=== PATIENT | male | born 1990 | race African-American/Black ===

== ENCOUNTER 2024-05-27 13:27 | Emergency (ER) | payer OTHER, SELFPAY ==
[2024-05-27 13:34] VITALS: BP 125/88; PULSE 71; RESP 16; TEMP 37.1; O2SAT 99; BMI 29.9
--- NOTE | 2024-05-27 13:43 | ED_ITS ---
HPI - Back Pain/Injury <Ana Ding PA-C - Last Filed: 05/27/24 14:45> General Chief Complaint: Back Pain/Injury Stated Complaint: back pain Time Seen by Provider: 05/27/24 13:43 Source: patient History of Present Illness HPI Narrative: Mr. Lucia is a pleasant 34-year-old male with a past medical history of seizure disorder on Lamictal and Briviact who presents to the emergency department for low back pain x2 weeks. Patient reports he developed low back pain while sitting work. Denies any trauma to the back. States that sitting and bending forward exacerbated the pain in the low back. Sitting up straight and lying relieve the pain. He denies fevers, chills, diabetes, cancer, dysuria, bowel or bladder incontinence, numbness or tingling of the lower extremity, weakness. Denies history of IV drug use. He has not tried anything to relieve the pain. Related Data Previous Rx's Medication Instructions Recorded lidocaine 5 % topical patch 1 patch topical DAILY #15 ea 05/27/24 (Lidoderm) methocarbamol 500 mg tablet 500 mg PO BEDTIME PRN muscle spasm 05/27/24 #10 tabs methylprednisolone 4 mg tablets in See Rx Instructions PO .COMPLEX 05/27/24 a dose pack (Medrol (Donny)) #21 ea Review of Systems <Ana Ding PA-C - Last Filed: 05/27/24 14:45> Review of Systems ROS Unobtainable: All systems reviewed & are unremarkable except as noted in HPI and below Patient History <Ana Ding PA-C - Last Filed: 05/27/24 14:45> Social History Smoking Status: Never smoker Smoking Status: Never smoker Substance Use Type: does not use Exam <Ana Ding PA-C - Last Filed: 05/27/24 14:45> Narrative Exam Narrative: GENERAL: 34 year old patient appears stated age. Well-developed patient, in no acute distress. HEAD: Atraumatic. Normocephalic. EYES: Extraocular motions intact. No scleral icterus. No injection or drainage. ENT: Nose without bleeding, purulent drainage. NECK: Trachea midline. Cervical ROM intact. CARDIOVASCULAR: Regular rate and rhythm. RESPIRATORY: ?Nonlabored respirations. ?Speaking in clear, full sentences. ?Clear to auscultation. Breath sounds equal bilaterally. No wheezes, rales, or rhonchi. ? GASTROINTESTINAL: Abdomen soft, non-tender, nondistended. EXTREMITIES: No edema or joint tenderness. +2 BL PT pulses. BACK: + left SLR. Nontender without deformity or crepitance. No flank tenderness. NEURO: AOx3. ?Clear speech. ?Moves all 4 extremities appropriately. Sensation intact to light touch throughout bilateral lower extremities. 5/5 strength BL hip flex, knee flex, plantar & dorsiflexion of feet SKIN: No rash or erythema of visible areas Initial Vital Signs Initial Vital Signs: Vital Signs Temperature 98.8 F 05/27/24 13:34 Pulse Rate 71 05/27/24 13:34 Respiratory Rate 16 05/27/24 13:34 Blood Pressure 125/88 05/27/24 13:34 Pulse Oximetry 99 05/27/24 13:34 Oxygen Delivery Method Room Air 05/27/24 13:34 <Angelito Kaur MD - Last Filed: 06/01/24 15:26> Initial Vital Signs Initial Vital Signs: Vital Signs Temperature 98.8 F 05/27/24 13:34 Pulse Rate 71 05/27/24 13:34 Respiratory Rate 16 05/27/24 13:34 Blood Pressure 125/88 05/27/24 13:34 Pulse Oximetry 99 05/27/24 13:34 Oxygen Delivery Method Room Air 05/27/24 13:34 Course <Ana Ding PA-C - Last Filed: 05/27/24 14:45> Orders Ordered: Discontinued Medications Acetaminophen (Acetaminophen 325 Mg Tablet) 975 mg PO NOW ONE Stop: 05/27/24 14:12 Last Admin: 05/27/24 14:26 Dose: 975 mg Documented By: THOR Ketorolac Tromethamine (Ketorolac 30 Mg/Ml Vial) 30 mg IM NOW ONE Stop: 05/27/24 14:12 Last Admin: 05/27/24 14:27 Dose: 30 mg Documented By: THOR Vital Signs Vital signs: Vital Signs - 8 hr 05/27/24 13:34 Temperature 98.8 F Pulse Rate 71 Respiratory Rate 16 Blood Pressure 125/88 Pulse Oximetry 99 Oxygen Delivery Method Room Air <Angelito Kaur MD - Last Filed: 06/01/24 15:26> Orders Ordered: Discontinued Medications Acetaminophen (Acetaminophen 325 Mg Tablet) 975 mg PO NOW ONE Stop: 05/27/24 14:12 Last Admin: 05/27/24 14:26 Dose: 975 mg Documented By: THOR Ketorolac Tromethamine (Ketorolac 30 Mg/Ml Vial) 30 mg IM NOW ONE Stop: 05/27/24 14:12 Last Admin: 05/27/24 14:27 Dose: 30 mg Documented By: THOR Vital Signs Vital signs: Vital Signs - 8 hr 05/27/24 13:34 Temperature 98.8 F Pulse Rate 71 Respiratory Rate 16 Blood Pressure 125/88 Pulse Oximetry 99 Oxygen Delivery Method Room Air MDM - Back Pain/Injury <Ana Ding PA-C - Last Filed: 05/27/24 14:45> Lab Data Labs: Lab Results 05/27/24 Range/Units 13:40 Urine RBC None seen (0-5/HPF) Urine WBC None seen (0-5/HPF) Ur Squamous Epith Cells None seen (0-5/HPF) Urine Bacteria None seen (None) Ur Culture Indicated? Cult not indicated Vol Urine Centrifuged 10ml (spun) Urine Dip Bedside Urine Glucose Negative Bedside Urine Bilirubin - Negative Bedside Urine Ketone - Negative Urine Specific [place] 1.015 Bedside Urine Occult Blood - Negative Bedside Urine pH 6.0 Bedside Urine Protein +/- 15 Bedside Urine Urobilinogen - Negative Bedside Urine Nitrite - Negative Bedside Urine Leukocytes - Negative Esterase MDM Narrative Medical decision making narrative: 34-year-old male presents to the emergency department for low back pain x2 weeks. Differential diagnosis includes but is not limited to lumbar strain, spinal stenosis, radiculopathy, cystitis, etc. On exam patient is in no acute distress, nontoxic appearing. He is ambulatory. No focal neurologic deficits, equal bilateral lower extremity strength and sensation and good pulses. Does have a positive left straight leg raise. No red flags including history of cancer, diabetes, IV drug use, fevers, chills, trauma. We will check POC UA and treat symptoms with Tylenol and Toradol. POC UA negative for infection. Advised patient rest, gentle exercise, low does Tylenol and ibuprofen alternating for pain (given steroids + category C interaction between Lamictal and Tylenol at doses of 2.7-4 g daily) and Medrol Dosepak for left leg radiculopathy. He was prescribed muscle relaxer and lidoderm if needed, discussed risks of muscle relaxers. Advised patient follow up with his primary care doctor within 1 week for re-evaluation. Discussed strict ER return precautions. Patient is agreeable to plan, ambulatory, stable for discharge. <Angelito Kaur MD - Last Filed: 06/01/24 15:26> Lab Data Labs: Lab Results 05/27/24 Range/Units 13:40 Urine RBC None seen (0-5/HPF) Urine WBC None seen (0-5/HPF) Ur Squamous Epith Cells None seen (0-5/HPF) Urine Bacteria None seen (None) Ur Culture Indicated? Cult not indicated Vol Urine Centrifuged 10ml (spun) Urine Dip Bedside Urine Glucose Negative Bedside Urine Bilirubin - Negative Bedside Urine Ketone - Negative Urine Specific [place] 1.015 Bedside Urine Occult Blood - Negative Bedside Urine pH 6.0 Bedside Urine Protein +/- 15 Bedside Urine Urobilinogen - Negative Bedside Urine Nitrite - Negative Bedside Urine Leukocytes - Negative Esterase Discharge Plan Departure Patient Disposition: Home Clinical Impression: Acute back pain with radiculopathy, Lumbar back pain Instructions: DI for Low Back Pain Activity Restrictions/Additional Instructions: Please rest, stretch, use 650 mg of Tylenol every 8 hours and/or ibuprofen 400mg every 6 hours for pain. Complete the full course of steroids and use muscle relaxer and lidocaine patches if needed. Do not drink alcohol or drive a car while taking muscle relaxers as they can make you drowsy. Please follow up with the primary care doctor within the next week for re- evaluation. Return to the emergency department if you develop any issues with your bowels bladder, weakness in the legs, or any other concerns. Return to the emergency department for any new or worsening symptoms, or any other concerns. Thank you for letting me participate in your care, Ana Ding PA-C Prescriptions: New lidocaine [Lidoderm] 5 % adhesive patch,medicated 1 patch topical DAILY Qty: 15 0RF Rx Instructions: leave on most painful area for up to 12 hrs methylprednisolone [Medrol (Donny)] 4 mg tablets,dose pack See Rx Instructions .ROUTE .COMPLEX Qty: 21 0RF Rx Instructions: orally per package directions methocarbamol 500 mg tablet 500 mg PO BEDTIME PRN (Reason: muscle spasm) Qty: 10 0RF Stand Alone Forms: Patient Portal/API/Survey ED Sign-out <Angelito Kaur MD - Last Filed: 06/01/24 15:26> Cosign ED Attending Cosignature Attestation: I was immediately available in the department for consultation. ?This documentation has been reviewed and I agree with assessment and plan. Supervised by Angelito Kaur MD
[2024-05-27 14:23] LABS: Urine Volume 10mL (spun)
[2024-05-27 14:26] LABS: Bacteria Urine None Seen; Culture Indicated Urine Cult Not Indicated; RBC Urine None Seen (0-5/HPF); Squamous Epithelial Cell Urine None Seen (0-5/HPF); WBC Urine None Seen (0-5/HPF)
[2024-05-27] MEDS: ACETAMINOPHEN 325 MG TABLET 975 MG PO (14:26)
[2024-05-27] MEDS: KETOROLAC 30 MG/ML VIAL IM (14:27)
[2024-05-27 14:48] VITALS: BP 119/82; PULSE 73; RESP 16; O2SAT 99
== END 2024-05-27 14:50 | disposition home or self-care (01) ==
PROVIDERS: Emergency Provider Physician Assistant
DX: M54.16 Radiculopathy, lumbar region (principal); M54.50 Low back pain, unspecified
CPT/HCPCS: 81003; 81015; 96372; 99283; J1885

== ENCOUNTER 2024-09-03 08:10 | Emergency (ER) | payer OTHER, SELFPAY ==
[2024-09-03 08:25] VITALS: BP 134/92; PULSE 82; RESP 18; TEMP 36.4; O2SAT 97; BMI 29.2
--- NOTE | 2024-09-03 09:04 | ED_ITS ---
HPI - Back Pain/Injury General Chief Complaint: Back Pain/Injury Stated Complaint: Lower back pain Time Seen by Provider: 09/03/24 09:04 Source: patient History of Present Illness HPI Narrative: 34-year-old male with a past medical history of seizure disorder on Lamictal and Briviact presents for low back pain, states has a history of this states that he had an exacerbation of this yesterday when he was changing a tire last night. He denies any bowel or urinary incontinence or retention denies any saddle paresthesias is able to stand bear weight ambulate unassisted here in the emergency department. Denies any other symptoms at this time. Related Data Previous Rx's Medication Instructions Recorded lidocaine 5 % topical patch 1 patch topical DAILY #15 ea 05/27/24 (Lidoderm) methocarbamol 500 mg tablet 500 mg PO BEDTIME PRN muscle spasm 05/27/24 #10 tabs methylprednisolone 4 mg tablets in See Rx Instructions PO .COMPLEX 05/27/24 a dose pack (Medrol (Donny)) #21 ea diazepam 5 mg tablet (Valium) 5 mg PO BEDTIME PRN muscle spasm 5 09/03/24 days #5 tabs oxycodone-acetaminophen 5 mg-325 1 tab PO Q8H PRN pain 3 days #9 09/03/24 mg tablet (Percocet) tabs prednisone 20 mg tablet 20 mg PO DAILY 5 days #5 tabs 09/03/24 Allergies Allergy/AdvReac Type Severity Reaction Status Date / Time No Known Drug Allergies Allergy Verified 09/03/24 08:35 Review of Systems Review of Systems Narrative: General: Denies fever, chills, weight loss HEENT: Denies headache, eye drainage, eye irritation, head trauma, sore throat, voice change Cardiovascular: Denies any chest pain, palpitations, shortness of breath, tachycardia Respiratory: Denies any shortness of breath, cough, wheeze, stridor GI/: Denies any abdominal pain, nausea, vomiting, diarrhea, bright red blood per rectum, melanotic stools, urinary frequency, urinary retention, dysuria, hematuria MSK: Positive low back pain Skin: Denies any rashes, lesions, discoloration Neuro: Denies any headache, lightheadedness, dizziness, fainting, weakness Psych: Denies SI/HI Patient History Social History Smoking Status: Never smoker Smoking Status: Never smoker Exam Narrative Exam Narrative: General: Cooperative, comfortable, well-developed, not in acute distress HEENT: Normocephalic, atraumatic, PERRLA, normal sclera, eyelids normal, Neck: Active full range of motion, atraumatic Chest: Normal to inspection, negative crepitus, no overlying erythema ecchymosis Respiratory: Normal respiratory effort, not in acute respiratory distress, clear to auscultation bilaterally negative cough, wheeze, tachypnea, rhonchi, rales Cardiology: Regular rate rhythm negative gallop, murmur, rubs GI/: Normal to inspection, soft, nonrigid, no tenderness to palpation, exam deferred MSK: Full range of active range of motion of all 4 extremities, atraumatic, no tenderness to palpation of the thoracic lumbar spine tenderness to palpation of bilateral paraspinal muscles positive straight leg test, patient able to stand bear weight ambulate unassisted here in the emergency department. Skin: No rashes lesions noted Neuro: Alert awake oriented x3, moves all 4 extremities spontaneously, cranial nerves intact, able to answer all questions appropriately follows commands appropriately Psych: Cooperative, negative suicidal or homicidal ideations Initial Vital Signs Initial Vital Signs: Vital Signs Temperature 97.6 F 09/03/24 08:25 Pulse Rate 82 09/03/24 08:25 Respiratory Rate 18 09/03/24 08:25 Blood Pressure 134/92 H 09/03/24 08:25 Pulse Oximetry 97 09/03/24 08:25 Oxygen Delivery Method Room Air 09/03/24 08:25 Course Orders Ordered: ED Orders 09/03/24 09:11 CT lumbar spine wo con Stat Discontinued Medications Diazepam (Diazepam 5 Mg Tablet) 5 mg PO NOW ONE Stop: 09/03/24 09:12 Last Admin: 09/03/24 09:26 Dose: 5 mg Documented By: DESTINY Lidocaine (Lidocaine 5% Patch) 1 each TOP NOW ONE Stop: 09/03/24 09:12 Last Admin: 09/03/24 09:26 Dose: 1 each Documented By: DESTINY Oxycodone/Acetaminophen (Oxycodone/Acetaminophen 5/325 Tablet) 1 tab PO NOW ONE Stop: 09/03/24 09:12 Last Admin: 09/03/24 09:26 Dose: 1 tab Documented By: DESTINY Prednisone (Prednisone 20 Mg Tablet) 40 mg PO NOW ONE Stop: 09/03/24 09:12 Last Admin: 09/03/24 09:26 Dose: 40 mg Documented By: DESTINY Vital Signs Vital signs: Vital Signs - 8 hr 09/03/24 08:25 Temperature 97.6 F Pulse Rate 82 Respiratory Rate 18 Blood Pressure 134/92 H Pulse Oximetry 97 Oxygen Delivery Method Room Air MDM - Back Pain/Injury Differential Diagnosis Differential diagnosis: Likely lumbar radiculopathy and strain of lumbar region Imaging Data CT lumbar: Radiologist's Impression: [address] [address] [address] Scan Report Signed Patient: Lewis Lucia MR#: [id number] : 1990 Acct:[id number] Age/Sex: 34 / M Date of Service: 09/03/24 Loc: ED Accession Number: [id number] Procedure: CT lumbar spine wo con Ordering Provider: Amilcar Jackson D.O. PROCEDURE: CT LUMBAR SPINE WO CON INDICATIONS: low back pain TECHNIQUE: Noncontrast 3 mm thick sections acquired from the T12 level to the sacrum. Sagittal and coronal reformats were constructed. For radiation dose reduction, the following was used: automated exposure control. COMPARISON: None. FINDINGS: Image quality: Excellent. Bones: There is normal bony alignment. No acute vertebral body compression fractures. No suspicious lytic or blastic bony lesions. No pars defects. T12-L1: No canal stenosis or foraminal stenosis. L1-L2: No canal stenosis or foraminal stenosis. L2-L3: No canal stenosis or foraminal stenosis. L3-L4: No canal stenosis or foraminal stenosis. L4-L5: Mild disc bulge. Short pedicles. Borderline canal stenosis. No foraminal stenosis. L5-S1: Short pedicles. Mild broad-based disc protrusion, slightly eccentric to the left with subtle impingement on the left S1 nerve root. No significant central canal stenosis. Soft tissues: No retroperitoneal masses or hematomas. Visualized aorta is normal in caliber. IMPRESSION: 1. 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 2. Disc bulge with borderline canal stenosis at L4-L5. 3. Mild broad-based disc protrusion at L5-S1 with slight impingement on the left S1 nerve root. Recommend correlation for presence or absence of left sciatica symptoms. MDM Narrative Medical decision making narrative: 34-year-old male with a history of low back pain presents for exacerbation of this after changing his tire yesterday. Denies any saddle paresthesias or other red flag signs for cauda equina is able to stand bear weight ambulate here in the emergency department unassisted. Patient did have CT scan of his lumbar spine performed which did show mild lumbar radiculopathy but no severe canal stenosis. Patient's symptoms relieved after administration of Percocet Valium lidocaine patch and prednisone he will be sent home with symptomatic relief and instructed to follow up with primary care and orthopedic surgery in outpatient setting strict return precautions were given he understands and agrees with this plan patient agrees to being discharged home with outpatient follow up. Discharge Plan Departure Patient Disposition: Home Clinical Impression: Acute lumbar radiculopathy Instructions: DI for Back Pain With Sciatica Activity Restrictions/Additional Instructions: Please follow up with primary care and orthopedic surgery Please read the discharge instructions sheet carefully and bring all papers to all doctor follow-up visits, as it may contain information that your doctor may want to see. Disease processes change and evolve, if your symptoms worsen or if you develop any new symptoms that are concerning to you please return for evaluation. Your evaluation today does not show any evidence of any life- threatening/serious illnesses requiring admission to the hospital or surgery. Please follow-up with your doctor for re-evaluation in approximately 1 day. Seek immediate medical attention for any worrisome symptoms. *If you do not have a primary care provider please contact the [facility] Resource line at [phone]. They will ask some questions about your medical history and help get you set up with a doctor in the community. Prescriptions: New prednisone 20 mg tablet 20 mg PO DAILY 5 Days Qty: 5 0RF diazepam [Valium] 5 mg tablet 5 mg PO BEDTIME PRN (Reason: muscle spasm) 5 Days Qty: 5 0RF oxycodone-acetaminophen [Percocet] 5-325 mg tablet 1 tab PO Q8H PRN (Reason: pain) 3 Days Qty: 9 0RF No Action lidocaine [Lidoderm] 5 % adhesive patch,medicated 1 patch topical DAILY Qty: 15 0RF Rx Instructions: leave on most painful area for up to 12 hrs methylprednisolone [Medrol (Donny)] 4 mg tablets,dose pack See Rx Instructions .ROUTE .COMPLEX Qty: 21 0RF Rx Instructions: orally per package directions methocarbamol 500 mg tablet 500 mg PO BEDTIME PRN (Reason: muscle spasm) Qty: 10 0RF Referrals: Ralph Salazar MD [Physician] - Stand Alone Forms: Patient Portal/API/Survey
--- NOTE | 2024-09-03 09:11 | DI.CT.S_ITS ---
PROCEDURE: CT LUMBAR SPINE WO CON INDICATIONS: low back pain TECHNIQUE: Noncontrast 3 mm thick sections acquired from the T12 level to the sacrum. Sagittal and coronal reformats were constructed. For radiation dose reduction, the following was used: automated exposure control. COMPARISON: None. FINDINGS: Image quality: Excellent. Bones: There is normal bony alignment. No acute vertebral body compression fractures. No suspicious lytic or blastic bony lesions. No pars defects. T12-L1: No canal stenosis or foraminal stenosis. L1-L2: No canal stenosis or foraminal stenosis. L2-L3: No canal stenosis or foraminal stenosis. L3-L4: No canal stenosis or foraminal stenosis. L4-L5: Mild disc bulge. Short pedicles. Borderline canal stenosis. No foraminal stenosis. L5-S1: Short pedicles. Mild broad-based disc protrusion, slightly eccentric to the left with subtle impingement on the left S1 nerve root. No significant central canal stenosis. Soft tissues: No retroperitoneal masses or hematomas. Visualized aorta is normal in caliber. IMPRESSION: 1. 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 2. Disc bulge with borderline canal stenosis at L4-L5. 3. Mild broad-based disc protrusion at L5-S1 with slight impingement on the left S1 nerve root. Recommend correlation for presence or absence of left sciatica symptoms. Dictated by: Jens Nevarez M.D. on 09/03/2024 at 10:38 Approved by: Jens Nevarez M.D. on 09/03/2024 at 10:43
[2024-09-03] MEDS: LIDOCAINE 5% PATCH 1 EACH TOP (09:26)
[2024-09-03] MEDS: predniSONE 20 MG TABLET 40 MG PO (09:26)
[2024-09-03] MEDS: diazePAM 5 MG TABLET PO (09:26)
[2024-09-03] MEDS: OXYCODONE/ACETAMINOPHEN 5/325 TABLET 1 TAB PO (09:26)
[2024-09-03 11:18] VITALS: BP 128/77; PULSE 80; RESP 18; TEMP 36.7; O2SAT 99
== END 2024-09-03 11:19 | disposition home or self-care (01) ==
PROVIDERS: Emergency Provider Student in an Organized Health Care Education/Training Program
DX: M54.16 Radiculopathy, lumbar region (principal)
CPT/HCPCS: 72131; 99283; 99284

== ENCOUNTER 2024-09-22 21:42 | Emergency (ER) | payer OTHER, SELFPAY ==
[2024-09-22] VITALS (7 sets, daily range): BP systolic 129–151; BP diastolic 84–97; PULSE 83–93; RESP 17–22; TEMP 36.7; O2SAT 95–97; BMI 28.4
--- NOTE | 2024-09-22 21:51 | EKG_ITS ---
[address] [address] Test Date: 2024-09-22 Pat Name: Lewis Lucia Department: 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
--- NOTE | 2024-09-22 22:01 | DI.RAD.S_ITS ---
PROCEDURE: XR CHEST 1V INDICATIONS: chest pain TECHNIQUE: One view of the chest was acquired. COMPARISON: None. FINDINGS AND IMPRESSION: Low lung volumes. On this single view study, no airspace consolidation or pleural effusion. Normal heart size. Unremarkable osseous structures. Dictated by: Clement Thacker M.D. on 09/22/2024 at 22:14 Approved by: Clement Thacker M.D. on 09/22/2024 at 22:15
--- NOTE | 2024-09-22 22:09 | PC.NURSE ---
Pt states that he has epilepsy, but no cardiac history.
[2024-09-22 22:10] LABS: Add Manual Diff / Slide Review NO; Basophils Absolute Auto 100 /uL (0-100); Eosinophils Absolute Auto 300 /uL (0-450); Eosinophils Percent Auto 3.1 % (2-4); Hematocrit 48.5 % (41-53); Hemoglobin 16.8 g/dL (13.5-17.5); Lymphocytes Absolute Auto 3600 /uL (1100-4500); Lymphocytes Percent Auto 38.9 % (25-40); Mean Corpuscular HGB Conc 34.8 % (30-36); Mean Corpuscular Hemoglobin 27.1 PG (26-34); Monocytes Absolute Auto 700 /uL (0-900); Monocytes Percent Auto 8.1 % (3-14); Neutrophils Absolute Auto 4500 /uL (1500-7000); Neutrophils Percent Auto 48.9 % (50-75); Platelet Count 195 X10^3/uL (150-400); Red Blood Cell Count 6.21 X10^6/uL (4.5-5.9); Red Cell Distribution Width 14.9 % (11.6-14.8); White Blood Cell Count 9.2 X10^3/uL (4.5-11.0)
[2024-09-22 22:14] LABS: INR 1.1 (0.9-1.3); Prothrombin Time 12.4 SECONDS (9.4-12.5)
[2024-09-22 22:16] LABS: PTT Partial Thromboplastin Tim 32 SECONDS (25.1-36.5)
[2024-09-22 22:18] LABS: Alanine Aminotransferase 115 IU/L (<50); Albumin 4.8 g/dL (3.5-5.0); Albumin Globulin Ratio 1.4 (1.0-2.8); Alkaline Phosphatase 83 U/L (38-126); Aspartate Aminotransferase 67 IU/L (17-59); BUN Creatinine Ratio 9.4 (6-22); Blood Urea Nitrogen 9 mg/dL (9-20); Calcium 9.4 mg/dL (8.4-10.2); Carbon Dioxide 25 mmol/L (22-32); Chloride 101 mmol/L (98-107); Creatine Kinase 400 U/L (55-170); Estimated Glomerular Filt Rate > 60 mL/min (>60); Globulin 3.4 g/dL (1.7-4.1); Glucose 128 mg/dL (70-100); HEMOLYSIS 27 (0-50); Lipase 70 U/L (23-300); Magnesium 1.7 mg/dL (1.6-2.3); Potassium 3.5 mmol/L (3.4-5.1); Sodium 138 mmol/L (137-145); Total Protein 8.2 g/dL (6.3-8.2)
[2024-09-22] MEDS: ASPIRIN 81 MG CHEW TAB 324 MG PO (22:21)
[2024-09-22 22:30] LABS: NT-proBNP (BNP-Adult 18+) < 20 pg/mL (<125); Troponin I 0.089 ng/mL (0.01-0.034)
[2024-09-23] VITALS (24 sets, daily range): BP systolic 92–158; BP diastolic 60–93; PULSE 60–87; RESP 12–27; O2SAT 95–100
--- NOTE | 2024-09-23 00:21 | ED.CHESTPAIN ---
HPI - Chest Pain General Chief Complaint: Chest Pain Stated Complaint: chest pain radiating to back Time Seen by Provider: 09/23/24 00:17 Source: patient, RN notes reviewed and old records reviewed Mode of arrival: Ambulatory Limitations: no limitations Limitations: no limitations History of Present Illness HPI narrative: 34-year-old male with history of seizure disorder on Keppra and Brivaracetam complaint of left chest pain radiating to his back came on suddenly this morning while getting out of the car worse with movement and breathing no tenderness when he pushes but does hurt with movement. Also has complaints of chronic pain in the left lower back and leg as well as left eye pain. Patient states started having left-sided chest pain radiates towards his back. Started about 10:00 a.m. this morning he was getting in or out of the car. He states it was little bit worse if he reaches forward but also pleuritic in nature. He states he does not really feel short of breath. Denies any nausea or vomiting. No syncope. No fevers or chills. No cold cough or congestion symptoms. No issues with bowel movements or urination. Denies any swelling extremities. States he is on brief and Keppra states he was diagnosed with seizures in May 2021 unclear why. Does supposed to follow with neurology [facility]. no known drug allergies, no tobacco, alcohol or recreational drugs. He denies any embolic, cardiac or vascular family history. He notes he had what sounds like a heart catheterization after a flight to [place] from [facility] he was told he had a clot and was on thinners for 2 weeks but they were not continued. This was a couple years ago. Related Data Previous Rx's Medication Instructions Recorded lidocaine 5 % topical patch 1 patch topical DAILY #15 ea 05/27/24 (Lidoderm) methocarbamol 500 mg tablet 500 mg PO BEDTIME PRN muscle spasm 05/27/24 #10 tabs methylprednisolone 4 mg tablets in See Rx Instructions PO .COMPLEX 05/27/24 a dose pack (Medrol (Donny)) #21 ea Allergies Allergy/AdvReac Type Severity Reaction Status Date / Time No Known Drug Allergies Allergy Verified 09/03/24 08:35 Review of Systems Review of Systems ROS Unobtainable: All systems reviewed & are unremarkable except as noted in HPI and below Patient History Social History Smoking Status: Never smoker Smoking Status: Never smoker Exam Narrative Exam Narrative: GENERAL: Alert and oriented x three, male in mild distress HEENT: Head normocephalic, atraumatic, EOMI, pupils reactive, face symmetric, moist mucous membranes NECK: Supple, full range of motion CARDIOVASCULAR: Regular rate and rhythm without murmurs, rubs or gallops. No JVD. No edema bilateral lower extremities. RESPIRATORY: Breath sounds equal bilaterally, no wheezes rales or rhonchi. ABDOMEN: Soft, nontender. Normoactive bowel sounds all 4 quadrants. No guarding or rebound, rigidity, no mass : No CVA tenderness EXTREMITIES: Normal range of motion, no clubbing or edema. Neurovascularly intact NEUROLOGICAL: Cranial nerves II through XII grossly intact. Moving all extremities SKIN: Warm, dry, no petechiae, no rashes or lesions. Initial Vital Signs Initial Vital Signs: Vital Signs Temperature 98.0 F 09/22/24 21:50 Pulse Rate 93 H 09/22/24 21:50 Respiratory Rate 17 09/22/24 21:50 Blood Pressure 136/97 H 09/22/24 21:50 Pulse Oximetry 97 09/22/24 21:50 Oxygen Delivery Method Room Air 09/22/24 21:50 Course Orders Ordered: Discontinued Medications Aspirin (Aspirin 81 Mg Chew Tab) 324 mg PO NOW ONE Stop: 09/22/24 22:02 Last Admin: 09/22/24 22:21 Dose: 324 mg Documented By: AB Heparin Sodium (Porcine) (Heparin 5,000 Unit/Ml Vial) 5,000 unit IV NOW ONE Stop: 09/23/24 02:44 Last Admin: 09/23/24 03:10 Dose: 5,000 unit Documented By: AB Heparin Sodium/Dextrose (Heparin Drip) 25,000 unit in 500 mls @ 22.208 mls/hr IV CONT JULITO; Protocol Last Admin: 09/23/24 03:21 Dose: Not Given Documented By: AB Heparin Sodium/Dextrose (Heparin Drip) 25,000 unit in 500 mls @ 20 mls/hr IV CONT JULITO; Protocol Last Titration: 09/23/24 09:33 Dose: 1,000 unit/hr, 20 mls/hr Documented By: SHIRA Co-signed By: Admin: 09/23/24 03:11 Dose: 1,000 unit/hr, 20 mls/hr Documented By: Co-signed By: BETY Morphine Sulfate (Morphine 4 Mg/Ml Inj) 4 mg IV NOW ONE Stop: 09/23/24 01:38 Last Admin: 09/23/24 01:41 Dose: 4 mg Documented By: Nitroglycerin (Nitroglycerin 0.4 Mg Sl Tab) 0.4 mg SL [id number] PRN PRN Reason: Chest Pain Last Admin: 09/23/24 01:28 Dose: 0.4 mg Documented By: Vital Signs Vital signs: Vital Signs - 8 hr 09/22/24 23:00 09/22/24 23:00 09/22/24 23:30 Pulse Rate 87 86 Respiratory Rate 20 22 Blood Pressure 129/90 Pulse Oximetry 95 97 Oxygen Delivery Method Room Air 09/22/24 23:30 09/23/24 00:00 09/23/24 00:00 Pulse Rate 87 Respiratory Rate 22 Blood Pressure 151/84 H 158/93 H Pulse Oximetry 98 Oxygen Delivery Method 09/23/24 00:30 09/23/24 00:31 09/23/24 00:31 Pulse Rate 82 83 Respiratory Rate 17 18 Blood Pressure 131/82 Pulse Oximetry 98 98 Oxygen Delivery Method 09/23/24 01:11 09/23/24 01:12 09/23/24 01:12 Pulse Rate 77 80 Respiratory Rate 15 21 Blood Pressure 125/83 Pulse Oximetry 97 97 Oxygen Delivery Method 09/23/24 01:28 09/23/24 01:30 09/23/24 02:00 Pulse Rate 82 83 79 Respiratory Rate 17 16 Blood Pressure 125/83 Pulse Oximetry 97 97 Oxygen Delivery Method Room Air 09/23/24 02:30 09/23/24 03:00 09/23/24 03:20 Pulse Rate 70 71 Respiratory Rate 27 H 23 Blood Pressure 107/67 Pulse Oximetry 95 96 Oxygen Delivery Method Room Air 09/23/24 03:20 09/23/24 03:30 09/23/24 03:30 Pulse Rate 72 63 Respiratory Rate 16 14 Blood Pressure 108/64 Pulse Oximetry 97 95 Oxygen Delivery Method 09/23/24 04:00 09/23/24 04:00 09/23/24 04:30 Pulse Rate 60 Respiratory Rate 18 Blood Pressure 114/78 119/78 Pulse Oximetry 95 Oxygen Delivery Method 09/23/24 04:30 09/23/24 05:00 09/23/24 05:00 Pulse Rate 68 65 Respiratory Rate 14 12 Blood Pressure 103/71 Pulse Oximetry 96 96 Oxygen Delivery Method Room Air 09/23/24 05:30 09/23/24 05:30 09/23/24 06:00 Pulse Rate 62 64 Respiratory Rate 14 14 Blood Pressure 103/68 Pulse Oximetry 96 100 Oxygen Delivery Method 09/23/24 06:00 09/23/24 06:30 09/23/24 06:30 Pulse Rate 71 Respiratory Rate 12 Blood Pressure 101/67 109/76 Pulse Oximetry 98 Oxygen Delivery Method MDM - Chest Pain Lab Data 09/22/24 21:55 09/22/24 21:55 Labs: Lab Results 09/22/24 09/22/24 09/23/24 Range/Units 21:55 23:55 02:05 WBC 9.2 (4.5-11.0) X10^3/uL RBC 6.21 H (4.5-5.9) X10^6/uL Hgb 16.8 (13.5-17.5) g/dL Hct 48.5 (41-53) % MCV 78.0 L (80-100) fL MCH 27.1 (26-34) PG MCHC 34.8 (30-36) % RDW 14.9 H (11.6-14.8) % Plt Count 195 (150-400) X10^3/uL Neut % (Auto) 48.9 L (50-75) % Lymph % (Auto) 38.9 (25-40) % [place] % (Auto) 8.1 (3-14) % Eos % (Auto) 3.1 (2-4) % Baso % (Auto) 1.0 (0-2) % Neut # (Auto) 4500 (4275-6046) /uL Lymph # (Auto) 3600 (4140-9665) /uL [place] # (Auto) 700 (0-900) /uL Eos # (Auto) 300 (0-450) /uL Baso # (Auto) 100 (0-100) /uL PT 12.4 (9.4-12.5) SECONDS INR 1.1 (0.9-1.3) APTT 32 (25.1-36.5) SECONDS Sodium 138 (137-145) mmol/L Potassium 3.5 (3.4-5.1) mmol/L Chloride 101 (98-107) mmol/L Carbon Dioxide 25 (22-32) mmol/L BUN 9 (9-20) mg/dL Creatinine 0.96 (0.66-1.25) mg/dL Estimated GFR > 60 (>60) mL/min BUN/Creatinine Ratio 9.4 (6-22) Glucose 128 H (70-100) mg/dL Calcium 9.4 (8.4-10.2) mg/dL Magnesium 1.7 (1.6-2.3) mg/dL Total Bilirubin 1.0 (0.2-1.3) mg/dL AST 67 H (17-59) IU/L ALT 115 H (<50) IU/L Alkaline Phosphatase 83 (38-126) U/L Total Creatine Kinase 400 H (55-170) U/L Troponin I 0.089 H 0.090 H 0.092 H (0.01-0.034) ng/mL NT-Pro-B Natriuret Pep < 20 (<125) pg/mL Total Protein 8.2 (6.3-8.2) g/dL Albumin 4.8 (3.5-5.0) g/dL Globulin 3.4 (1.7-4.1) g/dL Albumin/Globulin Ratio 1.4 (1.0-2.8) Lipase 70 (23-300) U/L ECG Data Attestation: I personally reviewed and interpreted this ECG as follows: Prior ECG tracings: not available for review Interpretation: Sinus rhythm rate 83 HI 166 QRS is 74 QTC of 401, no acute ST elevation depression noted. No priors for comparison. Repeat EKG shows sinus rhythm rate of 79 HI 172 QRS of 92 QTC of 410, little bit of J-point elevation but no clear ST elevation greater than 1mm in comparison to prior. [facility] Narrative Medical decision making narrative: 34-year-old male reported history of seizure disorder patient comes in with complaint of chest started while getting into a vehicle has been persistent does not appreciate worsening with exertion but has not resolved. Initial troponin is indeterminate but trending upwards on repeat, was repeated a 3rd time continuing to slowly trend upwards hemoglobin, electrolytes are appropriate AST ALT are both mildly elevated. Chest x-ray showed no acute change. Patient states he does fly quite a bit so CT angio was obtained which was negative for pulmonary embolism. Patient reports had what sounds like possible heart catheterization while in [place] several years ago. He has had no recent cold cough congestion symptoms or other changes recently to suspect myocarditis or pericarditis. EKG shows sinus rhythm rate 83 Labs show white count of 9.2 hemoglobin of 16.8 platelets of 195, coags are negative, electrolytes are appropriate BUN creatinine normal glucose is 128 AST ALT your elevated at 67 and 115 bilirubin is normal lipase is negative at 70, total CK is 400 troponin 0.089. Repeat troponin is 0.090 still indeterminant but trending upwards. BNP is less than 20. troponin repeated a third time continues to slowly trendwards. Chest x-ray shows no acute change CT angio for PE is negative. No dense airspace disease or pleural effusions. Partially seen suspected hepatic steatosis. Patient had aspirin 324mg. Had nitro sublingual no improvement in chest pain but now has a headache. Was given morphine 4 mg had improvement of chest discomfort after this. Patient placed on heparin gtt in the setting of chest pain with trending upwards troponins. Plan to order patient's Keppra and Brivaracetam but he is unsure of dosing, patient has had his evening dose. Consult with cardiology Dr. Green, [facility] @ [phone] discussed we will repeat a 3rd troponin his positive would require transfer if still indeterminate consider keeping here for chest Pain observation and stress testing. Updated patient he is aware and comfortable with the plan. Patient troponin continues to trend upwards. Patient chest pain improved after morphine. Plan for transfer for unstable angina. Calls out to multiple facilities Spoke with Dr. Nicole, hospitalist at [facility] @ 0400. We reviewed findings from today. He asked if we can chat with our hospitalist see if we can stress test patient 1st and if positive can transfer. If hospitalist requests transfer can call back. Spoke with Dr. Lunsford tele hospitalist at 5:15 a.m., feels patient not appropriate to keep here for stress test with rising troponin. Re-contacted [facility], spoke with Dr. [facility] cardiology [id number]. Did ask if possible to get stress test discussed I spoke with my hospitalist who felt uncomfortable with this with a rising troponins. [facility] appropriate for transfer at this time. Coordinator will re-contact the hospitalist. Call back from coordinator. Dr. Nicole accepts for transfer to [facility]. Have floor assignment but not bed assignment but okay to send. Plan for ALS with heparin gtt. Discussed with the patient he was agreeable with transfer. He was aware he may get stress testing initially and then decision would be made for cardiac catheterization. Critical Care Time Critical Care Time Critical Care Time: Yes Total Critical Care Time: 40 Attestation: The high probability of a clinically significant, sudden or life threatening deterioration of the cardiac/pulmonary system(s) required my full and direct attention, intervention and personal management. The aggregate critical care time was [--] minutes. This time is in addition to time spent performing reported procedures but includes the following: [x] Data Review and interpretation [x] Patient assessment and monitoring of vital signs [x] Documentation [x] Medication orders and management Discharge Plan Departure Patient Disposition: [facility] Clinical Impression: Unstable angina Prescriptions: No Action lidocaine [Lidoderm] 5 % adhesive patch,medicated 1 patch topical DAILY Qty: 15 0RF Rx Instructions: leave on most painful area for up to 12 hrs methylprednisolone [Medrol (Donny)] 4 mg tablets,dose pack See Rx Instructions .ROUTE .COMPLEX Qty: 21 0RF Rx Instructions: orally per package directions methocarbamol 500 mg tablet 500 mg PO BEDTIME PRN (Reason: muscle spasm) Qty: 10 0RF Referrals: Miscellaneous,DoctorMD [Primary Care Provider] -
--- NOTE | 2024-09-23 00:36 | DI.CT.S_ITS ---
ROCEDURE: CT ANGIO CHEST PE PROTOCOL INDICATIONS: chest pain on L, indeterminant trop, flies regularly, ? hxpe TECHNIQUE: After the administration of intravenous contrast, 2 mm thick sections acquired from the pulmonary apices to the posterior costophrenic angles. 3-dimensional maximum intensity projection (MIP) coronal and sagittal reformats were then acquired through the thorax. For radiation dose reduction, the following was used: automated exposure control, adjustment of mA and/or kV according to patient size. COMPARISON: [facility], CR, XR CHEST 1V, 09/22/2024, 21:59. FINDINGS: Image quality: Diagnostic Lungs and pleura: Basal atelectasis. No airspace consolidation or pleural effusion. Mediastinum, heart, and esophagus: No acute pulmonary embolism. Heart size is at the upper limit of normal. Mildly patulous distal esophagus. No pathologic lymph nodes by size criteria Chest wall and thyroid: Unremarkable Upper abdomen: Suspect hepatic steatosis partially seen. Bones: No aggressive appearing focal osseous abnormality. IMPRESSION: No acute pulmonary embolism. No dense airspace disease or pleural effusions. Partially seen suspected hepatic steatosis Dictated by: Clement Thacker M.D. on 09/23/2024 at 1:09 Approved by: Clement Thacker M.D. on 09/23/2024 at 1:12
[2024-09-23] MEDS: NITROGLYCERIN 0.4 MG SL TAB SL (01:28)
--- NOTE | 2024-09-23 01:38 | EKG_ITS ---
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
[2024-09-23] MEDS: MORPHINE 4 MG/ML INJ IV (01:41)
[2024-09-23 02:34] LABS: Troponin I 0.092 ng/mL (0.01-0.034)
[2024-09-23] MEDS: HEPARIN 5,000 UNIT/ML VIAL 5000 UNIT IV (03:10)
[2024-09-23] MEDS: HEPARIN DRIP 25,000 UNIT/500 ML IV.SOLN 20 UNIT IV (03:11)
--- NOTE | 2024-09-23 07:20 | PC.NURSE ---
Assumed care of pt at 0700. Pt resting comfortably with heparin drip running as delineated in MAR. Equal chest rise and fall observed.
== END 2024-09-23 09:36 | disposition short-term general hospital (02) ==
PROVIDERS: Emergency Provider Emergency Medicine
DX: I20.0 Unstable angina (principal); R07.9 Chest pain, unspecified
CPT/HCPCS: 36415; 71045; 71275; 80053; 82550; 83690; 83735; 83880; 84484; 85025; 85610; 85730; 93005; 96365; 96366; 96375; 99284; 99291; J1644; J2270; Q9967

== ENCOUNTER 2025-04-03 17:42 | Emergency (ER) | payer OTHER, SELFPAY ==
[2025-04-03] VITALS (14 sets, daily range): BP systolic 108–163; BP diastolic 58–97; PULSE 65–95; RESP 13–23; TEMP 36.9; O2SAT 94–100; BMI 29.5
--- NOTE | 2025-04-03 18:03 | EKG_ITS ---
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
--- NOTE | 2025-04-03 18:03 | DI.RAD.S_ITS ---
PROCEDURE: XR CHEST 1V INDICATIONS: Chest Pain TECHNIQUE: One view of the chest was acquired. COMPARISON: [facility], CR, XR CHEST 1V, 09/22/2024, 21:59. FINDINGS AND IMPRESSION: On this single view study with low lung volumes, no airspace consolidation or pleural effusion. Normal heart size, unchanged. Unremarkable osseous structures. Dictated by: Clement Thacker M.D. on 04/03/2025 at 19:15 Approved by: Clement Thacker M.D. on 04/03/2025 at 19:15
[2025-04-03 18:30] LABS: Add Manual Diff / Slide Review NO; Hematocrit 47.0 % (41-53); Hemoglobin 16.1 g/dL (13.5-17.5); Lymphocytes Absolute Auto 2300 /uL (1100-4500); Mean Corpuscular HGB Conc 34.3 % (30-36); Mean Corpuscular Hemoglobin 26.6 PG (26-34); Mean Corpuscular Volume 77.4 fL (80-100); Platelet Count 243 X10^3/uL (150-400)
[2025-04-03] MEDS: ASPIRIN 81 MG CHEW TAB 324 MG PO (18:31)
[2025-04-03 18:33] LABS: INR 1.1 (0.9-1.3); Prothrombin Time 12.9 SECONDS (9.4-12.5)
[2025-04-03 18:36] LABS: PTT Partial Thromboplastin Tim 28 SECONDS (25.1-36.5)
[2025-04-03 18:37] LABS: Alanine Aminotransferase 166 IU/L (<50); Albumin 4.8 g/dL (3.5-5.0); Albumin Globulin Ratio 1.4 (1.0-2.8); Alkaline Phosphatase 82 U/L (38-126); Blood Urea Nitrogen 9 mg/dL (9-20); Calcium 9.3 mg/dL (8.4-10.2); Carbon Dioxide 30 mmol/L (22-32); Chloride 101 mmol/L (98-107); Creatine Kinase 288 U/L (55-170); Estimated Glomerular Filt Rate > 60 mL/min (>60); Globulin 3.5 g/dL (1.7-4.1); Glucose 138 mg/dL (70-99); HEMOLYSIS < 15 (0-50); Lipase 57 U/L (23-300); Magnesium 1.7 mg/dL (1.6-2.3); Potassium 3.7 mmol/L (3.4-5.1); Sodium 137 mmol/L (137-145); Total Protein 8.3 g/dL (6.3-8.2)
[2025-04-03 18:48] LABS: NT-proBNP (BNP-Adult 18+) < 20 pg/mL (<125); Troponin I 0.086 ng/mL (0.01-0.034)
[2025-04-03 18:53] LABS: RBC Morphology Normal Morphology
--- NOTE | 2025-04-03 19:09 | ED.CHESTPAIN ---
HPI - Chest Pain General Chief Complaint: Chest Pain Stated Complaint: pain in upper abd more volume on one side Time Seen by Provider: 04/03/25 18:40 Source: patient Mode of arrival: Family Vehicle Limitations: no limitations History of Present Illness HPI narrative: 35-year-old male with nontraumatic upper abdominal pain R>L recent days, no vomiting, no trauma, no fevers or chills. Some right lower chest discomfort as well, some worse pain on deep inspiration. Noo history blood clots ot lungs or legs, no recent leg pain or swelling, no recent upper arm pain or swelling. No loose, black, red stools. Does not recall Crohns disease, colitis, diverticulitis prior diagnoses. No taking oral antibiotics, none taken recently. Denies painful or frequent urination, no prior kidney stones. No rpiro gallbladder or stomach ulcer medications. Has sensation of more fullness maybe swelling sensation to the right upper abdomen. No known hernias. No known aortic aneurysms. Also relays history of prior elevated troponin 2-3 years ago, has radial artery access heart catheterization without coronary interventions. Related Data Previous Rx's ?Medication ?Instructions ?Recorded lidocaine 5 % topical patch 1 patch topical DAILY #15 ea 05/27/24 (Lidoderm) methocarbamol 500 mg tablet 500 mg PO BEDTIME PRN muscle spasm 05/27/24 #10 tabs methylprednisolone 4 mg tablets in See Rx Instructions PO .COMPLEX 05/27/24 a dose pack (Medrol (Donny)) #21 ea amoxicillin 875 mg-potassium 1 tab PO BID #20 tabs 04/04/25 clavulanate 125 mg tablet Allergies Allergy/AdvReac Type Severity Reaction Status Date / Time No Known Drug Allergies Allergy Verified 04/03/25 18:18 Exam Narrative Exam Narrative: GENERAL: Well-developed patient, in mild distress. HEAD: Atraumatic. Normocephalic. EYES: Pupils equal round and reactive. Extraocular motions intact. No scleral icterus. No injection or drainage. ENT: Nose without bleeding, purulent drainage. Throat without erythema, tonsillar hypertrophy or exudate. Airway patent. NECK: Trachea midline. Non tender CARDIOVASCULAR: Regular rate and rhythm without murmurs, gallops, or rubs. RESPIRATORY: Clear to auscultation. Breath sounds equal bilaterally. No wheezes, rales, or rhonchi. GASTROINTESTINAL: Mild tendnerness right upper quadrant, some epigastrium and LUQ less tender, no distension, normal bowel tones without rushes or tinkles. EXTREMITIES: No edema or joint tenderness. BACK: Nontender without deformity or crepitance. No flank tenderness. NEURO: AOx3. Motor functions grossly nonfocal. SKIN: No rash or erythema of visible areas Initial Vital Signs Initial Vital Signs: Vital Signs Temperature 98.5 F 04/03/25 18:00 Pulse Rate 95 H 04/03/25 18:00 Respiratory Rate 16 04/03/25 18:00 Blood Pressure 135/91 H 04/03/25 18:00 Pulse Oximetry 99 04/03/25 18:00 Oxygen Delivery Method Room Air 04/03/25 18:00 Course Orders Ordered: Discontinued Medications Hydrocodone Bitart/Acetaminophen (Hydrocodone/Acet 5/325 Prepack) 1 bottle MISC DIRECTED ONE Stop: 04/04/25 01:35 Last Admin: 04/04/25 01:40 Dose: 1 bottle Documented By: LINO Hydrocodone Bitart/Acetaminophen (Hydrocodone/Acet 5/325 Tablet) 1 tab PO NOW ONE Stop: 04/04/25 01:35 Last Admin: 04/04/25 01:40 Dose: 1 tab Documented By: LINO Aspirin (Aspirin 81 Mg Chew Tab) 324 mg PO NOW ONE Stop: 04/03/25 18:04 Last Admin: 04/03/25 18:31 Dose: 324 mg Documented By: RONAK Famotidine (Famotidine 20 Mg/2 Ml Vial) 20 mg IV NOW JULITO Last Admin: 04/03/25 19:57 Dose: 20 mg Documented By: LINO Sodium Chloride (Normal Saline 0.9%) 1,000 mls @ 1,000 mls/hr IV BOLUS ONE Stop: 04/03/25 20:29 Last Infusion: 04/03/25 22:04 Dose: Infused Documented By: Admin: 04/03/25 19:54 Dose: 1,000 mls/hr Documented By: LINO Piperacillin Sod/Tazobactam (Sod 4.5 gm/ Sodium Chloride) 100 mls @ 200 mls/hr IV NOW ONE Stop: 04/03/25 21:15 Last Infusion: 04/03/25 23:43 Dose: Infused Documented By: Admin: 04/03/25 21:30 Dose: 200 mls/hr Documented By: LINO Morphine Sulfate (Morphine 4 Mg/Ml Inj) 4 mg IV NOW ONE Stop: 04/03/25 19:31 Last Admin: 04/03/25 19:55 Dose: 4 mg Documented By: LINO Ondansetron HCl (Ondansetron 4 Mg/2 Ml Inj) 4 mg IV NOW ONE Stop: 04/03/25 19:31 Last Admin: 04/03/25 19:54 Dose: 4 mg Documented By: LINO Vital Signs Vital signs: Vital Signs - 8 hr 04/03/25 18:00 04/03/25 18:31 04/03/25 18:31 Temperature 98.5 F Pulse Rate 95 H 91 H Respiratory Rate 16 18 Blood Pressure 135/91 H 156/97 H Pulse Oximetry 99 97 Oxygen Delivery Method Room Air 04/03/25 19:00 04/03/25 19:01 04/03/25 19:01 Temperature Pulse Rate 92 H 86 Respiratory Rate 22 Blood Pressure 163/90 H Pulse Oximetry 96 97 Oxygen Delivery Method 04/03/25 19:30 04/03/25 19:30 04/03/25 20:00 Temperature Pulse Rate 84 Respiratory Rate 21 Blood Pressure 144/81 H 146/89 H Pulse Oximetry 97 Oxygen Delivery Method 04/03/25 20:00 04/03/25 20:39 04/03/25 20:40 Temperature Pulse Rate 80 85 Respiratory Rate 20 Blood Pressure 137/85 Pulse Oximetry 97 100 Oxygen Delivery Method 04/03/25 20:40 04/03/25 21:00 04/03/25 21:00 Temperature Pulse Rate 77 83 Respiratory Rate 21 23 Blood Pressure 153/91 H Pulse Oximetry 97 95 Oxygen Delivery Method 04/03/25 21:30 04/03/25 21:30 04/03/25 22:00 Temperature Pulse Rate 67 Respiratory Rate 18 Blood Pressure 108/58 L 120/78 Pulse Oximetry 94 Oxygen Delivery Method 04/03/25 22:00 04/03/25 22:30 04/03/25 22:30 Temperature Pulse Rate 72 65 Respiratory Rate 15 15 Blood Pressure 129/77 Pulse Oximetry 95 95 Oxygen Delivery Method 04/03/25 23:00 04/03/25 23:00 04/03/25 23:30 Temperature Pulse Rate 76 Respiratory Rate 14 Blood Pressure 135/82 122/74 Pulse Oximetry 96 Oxygen Delivery Method 04/03/25 23:30 04/04/25 00:06 04/04/25 00:06 Temperature Pulse Rate 65 64 Respiratory Rate 13 14 Blood Pressure 117/70 Pulse Oximetry 95 98 Oxygen Delivery Method 04/04/25 00:30 04/04/25 01:00 04/04/25 01:00 Temperature Pulse Rate 62 65 Respiratory Rate 15 14 Blood Pressure 104/70 Pulse Oximetry 95 97 Oxygen Delivery Method MDM - Chest Pain Lab Data Attestation: I reviewed the patient's lab results. Lab results narrative: White blood cell count 7600, hemoglobin 16.1, platelets adequate. Glucose 138. Renal function, serum CO2, electrolytes normal. Mild transaminitis, ALT 166, AST 75, other liver functions alkaline phosphatase and total bilirubin normal. Lipase normal. Troponin 0.086 (patient has had multiple other lab draws of similar or higher range since September 2024) 04/03/25 18:15 04/03/25 18:15 Labs: Lab Results 04/03/25 04/04/25 Range/Units 18:15 00:10 WBC 7.6 (4.5-11.0) X10^3/uL RBC 6.07 H (4.5-5.9) X10^6/uL Hgb 16.1 (13.5-17.5) g/dL Hct 47.0 (41-53) % MCV 77.4 L (80-100) fL MCH 26.6 (26-34) PG MCHC 34.3 (30-36) % RDW 14.7 (11.6-14.8) % Plt Count 243 (150-400) X10^3/uL Neut % (Auto) 60.1 (50-75) % Lymph % (Auto) 31.0 (25-40) % Allen % (Auto) 6.4 (3-14) % Eos % (Auto) 1.7 L (2-4) % Baso % (Auto) 0.8 (0-2) % Neut # (Auto) 4500 (7926-3091) /uL Lymph # (Auto) 2300 (7467-8815) /uL Allen # (Auto) 500 (0-900) /uL Eos # (Auto) 100 (0-450) /uL Baso # (Auto) 100 (0-100) /uL RBC Morphology Normal morphology PT 12.9 H (9.4-12.5) SECONDS INR 1.1 (0.9-1.3) APTT 28 (25.1-36.5) SECONDS Sodium 137 (137-145) mmol/L Potassium 3.7 (3.4-5.1) mmol/L Chloride 101 (98-107) mmol/L Carbon Dioxide 30 (22-32) mmol/L BUN 9 (9-20) mg/dL Creatinine 0.89 (0.66-1.25) mg/dL Estimated GFR > 60 (>60) mL/min BUN/Creatinine Ratio 10.1 (6-22) Glucose 138 H (70-99) mg/dL Calcium 9.3 (8.4-10.2) mg/dL Magnesium 1.7 (1.6-2.3) mg/dL Total Bilirubin 1.0 (0.2-1.3) mg/dL AST 75 H (17-59) IU/L ALT 166 H (<50) IU/L Alkaline Phosphatase 82 (38-126) U/L Total Creatine Kinase 288 H (55-170) U/L Troponin I 0.086 H 0.082 H (0.01-0.034) ng/mL NT-Pro-B Natriuret Pep < 20 (<125) pg/mL Total Protein 8.3 H (6.3-8.2) g/dL Albumin 4.8 (3.5-5.0) g/dL Globulin 3.5 (1.7-4.1) g/dL Albumin/Globulin Ratio 1.4 (1.0-2.8) Lipase 57 (23-300) U/L Imaging Data Chest x-ray: Radiologist's Impression: [address] [address] XRay Report Signed Patient: Lewis Lucia MR#: [id number] : 1990 Acct:[id number] Age/Sex: 35 / M Date of Service: 04/03/25 Loc: ED Accession Number: [id number] Procedure: XR chest 1V Ordering Provider: Mandy Cary D.O. PROCEDURE: XR CHEST 1V INDICATIONS: Chest Pain TECHNIQUE: One view of the chest was acquired. COMPARISON: [facility], [place], XR CHEST 1V, 09/22/2024, 21:59. FINDINGS AND IMPRESSION: On this single view study with low lung volumes, no airspace consolidation or pleural effusion. Normal heart size, unchanged. Unremarkable osseous structures. Dictated by: Clement Thacker M.D. on 04/03/2025 at 19:15 Approved by: Clement Thacker M.D. on 04/03/2025 at 19:15 CTA chest PE protocol: Radiologist's Impression: [address] [address] [address] Scan Report Signed Patient: Lewis Lucia MR#: [id number] : 1990 Acct:[id number] Age/Sex: 35 / M Date of Service: 04/03/25 Loc: ED Accession Number: [id number] Procedure: CT angio chest PE protocol Ordering Provider: Stanton Camargo MD PROCEDURE: CT ANGIO CHEST PE PROTOCOL INDICATIONS: upper abd lower chest pain, trop indeter; PE protocol TECHNIQUE: After the administration of intravenous contrast, 2 mm thick sections acquired from the pulmonary apices to the posterior costophrenic angles. 3-dimensional maximum intensity projection (MIP) coronal and sagittal reformats were then acquired through the thorax. For radiation dose reduction, the following was used: automated exposure control, adjustment of mA and/or kV according to patient size. COMPARISON: [facility], CT, CT ABDOMEN PELVIS W CON, 04/03/2025, 20:25. [facility], CR, XR CHEST 1V, 04/03/2025, 18:58. [facility], CT, CT ANGIO CHEST PE PROTOCOL, 09/23/2024, 0:41. FINDINGS: Image quality: There is streak artifact seen through the level of the shoulders. Pulmonary arteries: Pulmonary arteries are normal in size, and demonstrate no intraluminal filling defects to suggest central pulmonary embolism. Lower Neck: No enlarged lymph nodes. Thyroid: No thyroid nodules which require sonographic follow up, per consensus guidelines. Axillae: No enlarged lymph nodes. Chest Wall: Unremarkable. Bones: Unremarkable. Lungs and Pleura: No pneumothorax or pleural effusions. No consolidation or suspicious nodules. Heart: Heart size is normal. No pericardial effusion. Thoracic Vessels: No aortic aneurysm. Mediastinum and Heather: No enlarged lymph nodes. Esophagus: No wall thickening. No hiatal hernia. Upper Abdomen: Please see the accompanying abdominal CT report. IMPRESSION: No pulmonary embolus. No acute cardiopulmonary process. Dictated by: Johnny Badillo M.D. on 04/03/2025 at 19:49 Approved by: Johnny Badillo M.D. on 04/03/2025 at 19:50 CT scan - abdomen/pelvis: Radiologist's Impression: [address] [address] [address] Scan Report Signed Patient: Lewis Lucia MR#: [id number] : 1990 Acct:[id number] Age/Sex: 35 / M Date of Service: 04/03/25 Loc: ED Accession Number: [id number] Procedure: CT abdomen pelvis w con Ordering Provider: Stanton Camargo MD PROCEDURE: CT ABDOMEN PELVIS W CON INDICATIONS: abd pain TECHNIQUE: After the administration of intravenous contrast, axial sections acquired from the lung bases to the pubic symphysis. Coronal and sagittal reformats were performed. For radiation dose reduction, the following was used: automated exposure control, adjustment of mA and/or kV according to patient size. COMPARISON: [facility], CT, CT ANGIO CHEST PE PROTOCOL, 04/03/2025, 20:25. [facility], CR, XR CHEST 1V, 04/03/2025, 18:58. [facility], CT, CT ANGIO CHEST PE PROTOCOL, 09/23/2024, 0:41. [facility], CT, CT LUMBAR SPINE WO CON, 09/03/2024, 9:36. FINDINGS: Image quality: Diagnostic. Lower Chest: Please see the accompanying chest CT report. ABDOMEN: Liver: No solid mass. The liver is mildly enlarged and there is diffuse fatty infiltration. Gallbladder: No radiopaque gallstones or wall thickening. Biliary ducts: No biliary dilation. Pancreas: No ductal dilation. Spleen: Size is within normal limits. Adrenal Glands: No adrenal nodules. Kidneys and Ureters: No hydronephrosis. No solid mass. No complex renal cystic lesion which requires follow up. Stomach and Bowel: Moderate wall thickening can be seen involving the distal colon, beginning at level the proximal transverse colon and continuing through the rectum. Mild surrounding inflammatory change can be seen. No dilated loops of small bowel are seen. Peritoneum: No abnormal intraperitoneal fluid. No free air. Ventral Wall: A mild periumbilical hernia is seen, containing fat. Abdominal Nodes: No retroperitoneal or mesenteric adenopathy by size criteria. Vessels: Aorta and inferior vena cava are normal in size. Incidental note is made of a circumaortic left renal vein. PELVIS: Pelvic Organs: Unremarkable. Bladder: No bladder wall thickening, accounting for underdistention. Pelvic Nodes: No enlarged lymph nodes. Miscellaneous: No inguinal hernias are seen. Bones: No aggressive osseous abnormality. Premature focal lower lumbar spine degenerative change can be seen. IMPRESSION: Moderate distal colonic wall thickening can be seen. Please correlate with potential infectious and inflammatory causes of colitis. No findings of perforation or abscess can be seen. Additional findings: Fatty infiltrated liver Mild fat containing periumbilical hernia Premature lower lumbar spine degenerative change Dictated by: Johnny Badillo M.D. on 04/03/2025 at 19:51 Approved by: Johnny Badillo M.D. on 04/03/2025 at 19:54 ECG Data Attestation: I personally reviewed and interpreted this ECG as follows: Interpretation: 1808, normal sinus rhythm with rate of 87, no obvious ST segment elevation or depression changes. TX 170, QRS 78, QTC 404. MDM Narrative Medical decision making narrative: 35-year-old male with upper abdominal pain [id number]-left side for the last 1 week, increasing today. No injury or trauma. Afebrile, sirs screen negative. Some tenderness to right upper quadrant on exam, less tenderness but still some tenderness left upper quadrant and epigastrium, no lower abdominal or periumbilical tenderness on exam, no obvious fluid wave. Labs are pending. History of prior troponin elevations, no coronary interventions, recalls radial artery cardiac catheterization 2 years ago with no coronary vessel interventions known. Patient has had prior troponin elevations here earlier this year. DDx consider cholecystitis, PUD, duodenitis, pancreatitis, choledocholithiasis, hepatitis, colitis, diverticulitis, aortic dissection, ACS, pulmonary embolus, other. EKG without obvious ischemic changes, sinus rhythm. Chest x-ray without obvious acute changes. See radiology report. Initial lab data: White blood cell count 7600, hemoglobin 16.1, platelets adequate. Glucose 138. Renal function, serum CO2, electrolytes normal. Mild transaminitis, ALT 166, AST 75, other liver functions alkaline phosphatase and total bilirubin normal. Lipase normal. Troponin 0.086 (patient has had multiple other lab draws of similar or higher range since September 2024). BNP nonmeasurable. Pain and tenderness, IV morphine/Zofran, IV Pepcid. CTA chest with IV only CT abdomen and pelvis imaging ordered. IV fluid bolus. CTA chest. No PE, no acute cardiopulmonary changes. No thoracic aorta syndromes described. See radiology report. CT abdomen and pelvis. IMPRESSION: Moderate distal colonic wall thickening can be seen. Please correlate with potential infectious and inflammatory causes of colitis. No findings of perforation or abscess can be seen. Additional findings: Fatty infiltrated liver. Mild fat containing periumbilical hernia. Premature lower lumbar spine degenerative change. See radiology report. No abdominal aortic/iliac/renal aneurysms described. No known drug allergies. IV Zosyn for colitis treatment. Awaiting interval repeat troponin, laboratory is down for sewage backup contamination temporarily, repeat troponin sent to [facility] to be run. Interval troponin drawn here, but run at [facility], second result was 0.093. HIgher than prior but in range with prior elevated troponins here since 09/2024. Will repeat interval draw, further trend. Labs services available in-house now. Troponin interval repeat 0.082 not rising. All troponin levels in lab here since September 2024 elevated, variable range 0.08-0.09 range, not obviously rising now, of unclear significance. He has alternate diagnosis colitis that correlates with his abdominal discomfort. Doubt ACS at this time. Discharge patient on oral Augmentin antibiotic. Follow up with PCP advised early next week. Further workup as an outpatient for now. Return precautions discussed. Discharge Plan Departure Patient Disposition: Home Clinical Impression: Colitis, Elevated troponin I measurement Instructions: DI for Colitis Activity Restrictions/Additional Instructions: Upper abdominal discomfort. CT angiogram chest showed no pulmonary embolus blood clot to the lungs, no acute cardiopulmonary changes. CT abdomen showed colitis infection changes of the large intestine, without obstruction or abscess or perforation changes. IV Zosyn antibiotic initiated, with planned for further antibiotics as an outpatient Augmentin to take for 10 day course, prescription sent to your pharmacy. Take pain medications as needed for pain control. You had history of elevated troponin in the past, recalled having a heart catheterization in the past, no coronary vessel interventions. Troponin indeterminate range noted here, but also on previous lab draws since September 2024. Second troponin was slightly higher than the 1st, a 3rd troponin was drawn and was lower than the 2nd and even the 1st draw. Similar and lower range then all other comparisons September 2024. Unclear significance. Consider recheck of exam and your symptoms with your regular doctor in the next couple of days. Take antibiotics and pain medications as needed. Return earlier to this/nearest emergency department for any change worsening symptoms or any concerns prior. Prescriptions: New amoxicillin-pot clavulanate 875-125 mg tablet 1 tab PO BID Qty: 20 0RF No Action lidocaine [Lidoderm] 5 % adhesive patch,medicated 1 patch topical DAILY Qty: 15 0RF Rx Instructions: leave on most painful area for up to 12 hrs methylprednisolone [Medrol (Donny)] 4 mg tablets,dose pack See Rx Instructions .ROUTE .COMPLEX Qty: 21 0RF Rx Instructions: orally per package directions methocarbamol 500 mg tablet 500 mg PO BEDTIME PRN (Reason: muscle spasm) Qty: 10 0RF Referrals: ProviderLiz [Primary Care Provider, Family Practice] Stand Alone Forms: Patient Portal/API
--- NOTE | 2025-04-03 19:18 | W.PC.EDHO ---
report given to Cris RUCKER
--- NOTE | 2025-04-03 19:28 | DI.CT.S_ITS ---
PROCEDURE: CT ANGIO CHEST PE PROTOCOL INDICATIONS: upper abd lower chest pain, trop indeter; PE protocol TECHNIQUE: After the administration of intravenous contrast, 2 mm thick sections acquired from the pulmonary apices to the posterior costophrenic angles. 3-dimensional maximum intensity projection (MIP) coronal and sagittal reformats were then acquired through the thorax. For radiation dose reduction, the following was used: automated exposure control, adjustment of mA and/or kV according to patient size. COMPARISON: [facility], CT, CT ABDOMEN PELVIS W CON, 04/03/2025, 20:25. [facility], CR, XR CHEST 1V, 04/03/2025, 18:58. [facility], CT, CT ANGIO CHEST PE PROTOCOL, 09/23/2024, 0:41. FINDINGS: Image quality: There is streak artifact seen through the level of the shoulders. Pulmonary arteries: Pulmonary arteries are normal in size, and demonstrate no intraluminal filling defects to suggest central pulmonary embolism. Lower Neck: No enlarged lymph nodes. Thyroid: No thyroid nodules which require sonographic follow up, per consensus guidelines. Axillae: No enlarged lymph nodes. Chest Wall: Unremarkable. Bones: Unremarkable. Lungs and Pleura: No pneumothorax or pleural effusions. No consolidation or suspicious nodules. Heart: Heart size is normal. No pericardial effusion. Thoracic Vessels: No aortic aneurysm. Mediastinum and Heather: No enlarged lymph nodes. Esophagus: No wall thickening. No hiatal hernia. Upper Abdomen: Please see the accompanying abdominal CT report. IMPRESSION: No pulmonary embolus. No acute cardiopulmonary process. Dictated by: Johnny Badillo M.D. on 04/03/2025 at 19:49 Approved by: Johnny Badillo M.D. on 04/03/2025 at 19:50
--- NOTE | 2025-04-03 19:29 | DI.CT.S_ITS ---
PROCEDURE: CT ABDOMEN PELVIS W CON INDICATIONS: abd pain TECHNIQUE: After the administration of intravenous contrast, axial sections acquired from the lung bases to the pubic symphysis. Coronal and sagittal reformats were performed. For radiation dose reduction, the following was used: automated exposure control, adjustment of mA and/or kV according to patient size. COMPARISON: [facility], CT, CT ANGIO CHEST PE PROTOCOL, 04/03/2025, 20:25. [facility], CR, XR CHEST 1V, 04/03/2025, 18:58. [facility], CT, CT ANGIO CHEST PE PROTOCOL, 09/23/2024, 0:41. [facility], CT, CT LUMBAR SPINE WO CON, 09/03/2024, 9:36. FINDINGS: Image quality: Diagnostic. Lower Chest: Please see the accompanying chest CT report. ABDOMEN: Liver: No solid mass. The liver is mildly enlarged and there is diffuse fatty infiltration. Gallbladder: No radiopaque gallstones or wall thickening. Biliary ducts: No biliary dilation. Pancreas: No ductal dilation. Spleen: Size is within normal limits. Adrenal Glands: No adrenal nodules. Kidneys and Ureters: No hydronephrosis. No solid mass. No complex renal cystic lesion which requires follow up. Stomach and Bowel: Moderate wall thickening can be seen involving the distal colon, beginning at level the proximal transverse colon and continuing through the rectum. Mild surrounding inflammatory change can be seen. No dilated loops of small bowel are seen. Peritoneum: No abnormal intraperitoneal fluid. No free air. Ventral Wall: A mild periumbilical hernia is seen, containing fat. Abdominal Nodes: No retroperitoneal or mesenteric adenopathy by size criteria. Vessels: Aorta and inferior vena cava are normal in size. Incidental note is made of a circumaortic left renal vein. PELVIS: Pelvic Organs: Unremarkable. Bladder: No bladder wall thickening, accounting for underdistention. Pelvic Nodes: No enlarged lymph nodes. Miscellaneous: No inguinal hernias are seen. Bones: No aggressive osseous abnormality. Premature focal lower lumbar spine degenerative change can be seen. IMPRESSION: Moderate distal colonic wall thickening can be seen. Please correlate with potential infectious and inflammatory causes of colitis. No findings of perforation or abscess can be seen. Additional findings: Fatty infiltrated liver Mild fat containing periumbilical hernia Premature lower lumbar spine degenerative change Dictated by: Johnny Badillo M.D. on 04/03/2025 at 19:51 Approved by: Johnny Badillo M.D. on 04/03/2025 at 19:54
[2025-04-03] MEDS: ONDANSETRON 4 MG/2 ML INJ IV (19:54)
[2025-04-03] MEDS: SODIUM CHLORIDE 0.9% 1,000 ML 1000 ML IV (19:54)
[2025-04-03] MEDS: MORPHINE 4 MG/ML INJ IV (19:55)
[2025-04-03] MEDS: FAMOTIDINE 20 MG/2 ML VIAL IV (19:57)
[2025-04-03] MEDS: PIPERACILLIN/TAZO 4.5 GM in SODIUM CHLORIDE 0.9% 100 ML IV (21:30)
[2025-04-04 00:06] VITALS: BP 117/70; PULSE 64; RESP 14; O2SAT 98
[2025-04-04 00:30] VITALS: PULSE 62; RESP 15; O2SAT 95
[2025-04-04 00:41] LABS: Troponin I 0.082 ng/mL (0.01-0.034)
[2025-04-04 01:00] VITALS: BP 104/70; PULSE 65; RESP 14; O2SAT 97
[2025-04-04 01:30] VITALS: PULSE 75; RESP 32; O2SAT 94
== END 2025-04-04 01:49 | disposition home or self-care (01) ==
PROVIDERS: Emergency Medicine; Emergency Provider Emergency Medicine
DX: K52.9 Noninfective gastroenteritis and colitis, unspecified (principal); R79.89 Other specified abnormal findings of blood chemistry
CPT/HCPCS: 36415; 71045; 71275; 74177; 80053; 82550; 83690; 83735; 83880; 84484; 85025; 85610; 85730; 93005; 93010; 96365; 96366; 96375; 99284; J2272; J2405; J2543; Q9967

== ENCOUNTER 2025-04-08 04:43 | Observation (INO) | payer OTHER, SELFPAY ==
[2025-04-08] VITALS (17 sets, daily range): BP systolic 103–146; BP diastolic 59–93; PULSE 83–120; RESP 13–24; TEMP 36.2–37.1; O2SAT 94–100; BMI 28.7
--- NOTE | 2025-04-08 | PATH_ITS ---
[facility] Accession Number: [id number] No. of containers..03 Tissue . 01 Material submitted: . PART A: duodenum - DUODENUM PART B: gastrointestinal site - ANTRUM PART C: gastrointestinal site - FUNDUS . 01 Diagnosis: A. DUODENUM: Duodenal mucosa with no diagnostic abnormality. Negative for active inflammation, features of sprue, dysplasia, or malignancy. . B. ANTRUM: Gastric mucosa with moderate chronic inflammation. No Helicobacter pylori organisms identified on immunohistochemical evaluation. See comment. No intestinal metaplasia, dysplasia, or malignancy. . C. FUNDUS: Gastric mucosa with mild chronic inflammation. No Helicobacter pylori organisms identified on immunohistochemical evaluation. No intestinal metaplasia, dysplasia, or malignancy. [facility] 04/16/2025 1040 Local . 01 Comment: B. Despite the absence of H. pylori organisms on the biopsy, the histologic features are suggestive of H. pylori infection and clinical correlation is recommended for further evaluation of this possibility. In some patients, organisms may be in low numbers or in a patchy distribution. Several factors which may be associated within absence of H. pylori organisms include prior treatment with antibiotics or proton pump inhibitors or concomitant mild reflux gastritis with suppression of organisms in the distal stomach. . 01 Electronically signed: . Zeny Wayne MD, Pathologist NPI- [id number] . 01 Gross description: . A. Received in formalin with two patient identifiers and duodenum. The specimen consists of two lyon soft tissue fragments measuring 0.4 x 0.3 x 0.2 cm and 0.2 x 0.2 x 0.2 cm. The specimen is entirely submitted in cassette A1. B. Received in formalin with two patient identifiers and antrum. The specimen consists of two lyon soft tissue fragments measuring 0.4 x 0.2 x 0.2 cm and 0.3 x 0.2 x 0.2 cm. The specimen is entirely submitted in cassette B1. C. Received in formalin with two patient identifiers and fundus. The specimen consists of one lyon soft tissue fragment measuring 0.5 x 0.3 x 0.2 cm. The specimen is entirely submitted in cassette C1. ([id number]) /MRV 04/13/2025 [facility] . 01 Microscopic: . B. An immunohistochemical stain was performed to evaluate for Helicobacter organisms and is negative. The control stain showed appropriate reactivity. . C. An immunohistochemical stain was performed to evaluate for Helicobacter organisms and is negative. The control stain showed appropriate reactivity. . * This test was developed and the performance characteristics were validated by [employer]. It has not been cleared or approved by the U.S. Food and Drug Administration. . 01 Pathologist provided ICD-10: K29.70 . 01 CPT . 766488, 717948, 847911, F79087 Specimen Comment: A courtesy copy of this report has been sent to [phone] Performed at: [address] [address], [place], [place] [id number] MD Naveen Jefferson MD Phone: [phone]
[2025-04-08] MEDS: ONDANSETRON 4 MG/2 ML INJ IV ×2 (05:00→08:24)
[2025-04-08] MEDS: PANTOPRAZOLE 40 MG VIAL 80 MG IV (05:05)
--- NOTE | 2025-04-08 06:06 | ED.GIBLEED ---
HPI - GI Bleed <Mandy Cary DO - Last Filed: 04/11/25 08:52> General Chief complaint: Abdominal Pain Stated complaint: Gastric Pain, Blood in stool, nausea 2xdays Time Seen by Provider: 04/08/25 06:05 Source: patient Mode of arrival: Ambulatory History of Present Illness HPI Narrative: Patient is a 35-year-old male history of seizure disorder on Keppra and recent unstable angina presenting today with rectal bleeding and vomiting. He has actually seen evaluated here on April 03 for some right upper quadrant pain. Today he reports that he threw up blood and actually showed me a picture bright red. He also reports bloody stool. Denies any alcohol use. No fever or chills. No significant abdominal pain he reports little bit of dizziness lightheadedness. No chest pain. He is not on anticoagulation medication, he was prescribed Augmentin Related Data Allergies Allergy/AdvReac Type Severity Reaction Status Date / Time No Known Drug Allergies Allergy Verified 04/08/25 05:56 Patient History <DO Zhang Culver Last Filed: 04/11/25 08:52> Medical History (Updated 04/08/25 @ 14:22 by Sirisha Pace MD) Osteoarthritis Elevated troponin Surgical History (Updated 04/08/25 @ 14:22 by Sirisha Pace MD) No significant past surgical history Family History (Updated 04/08/25 @ 14:23 by Sirisha Pace MD) Mother Osteoarthritis Social History household members: spouse, family and children Smoking Status: Never smoker Smoking Status: Never smoker Exam <DO Zhang Culver Last Filed: 04/11/25 08:52> Initial Vital Signs Initial Vital Signs: Vital Signs Temperature 98.8 F 04/08/25 04:50 Pulse Rate 107 H 04/08/25 04:50 Respiratory Rate 18 04/08/25 04:50 Blood Pressure 125/80 04/08/25 04:50 Pulse Oximetry 99 04/08/25 04:50 Oxygen Delivery Method Room Air 04/08/25 04:50 GENERAL: Alert 35-year-old male and in [no acute] distress. HEENT: Head atraumatic,EOMI, pupils reactive, face symmetric, [moist] mucous membranes CARDIOVASCULAR: Regular rate and rhythm without murmurs, rubs or gallops. RESPIRATORY: Breath sounds equal bilaterally, no wheezes rales or rhonchi. ABDOMEN: Soft, nontender. Normoactive bowel sounds all 4 quadrants. No guarding or rebound. [RECTAL:] [Hemoccult-positive, no hemorrhoids, nontender] EXTREMITIES: Normal range of motion, no clubbing or edema. Neurovascularly intact NEUROLOGICAL: Alert and oriented x4.Normal gait and speech. Cranial nerves II through XII grossly intact. SKIN: Warm, dry, no laceration, no petechiae, no rashes or lesions. <Angelito Kaur MD - Last Filed: 04/08/25 13:46> Initial Vital Signs Initial Vital Signs: Vital Signs Temperature 98.8 F 04/08/25 04:50 Pulse Rate 107 H 04/08/25 04:50 Respiratory Rate 18 04/08/25 04:50 Blood Pressure 125/80 04/08/25 04:50 Pulse Oximetry 99 04/08/25 04:50 Oxygen Delivery Method Room Air 04/08/25 04:50 Course <Mandy Cary DO - Last Filed: 04/11/25 08:52> Orders Ordered: Discontinued Medications Sodium Chloride (Normal Saline 0.9%) 1,000 mls @ 1,000 mls/hr IV BOLUS ONE Stop: 04/08/25 09:03 Last Infusion: 04/08/25 10:30 Dose: Infused Documented By: Admin: 04/08/25 08:17 Dose: 1,000 mls/hr Documented By: ES Sodium Chloride (Normal Saline 0.9%) 1,000 mls @ 100 mls/hr IV CONT [facility] Last Admin: 04/08/25 12:27 Dose: 100 mls/hr Documented By: MM Lactated Ringer's (Lactated Ringers) 1,000 mls @ 42 mls/hr IV CONT [facility] Last Admin: 04/08/25 13:35 Dose: 42 mls/hr Documented By: CB Metoprolol Tartrate (Metoprolol Tartrate 5 Mg/5 Ml Inj) 5 mg IV Q2HR PRN PRN Reason: Tachyarrhythmias Naloxone HCl (Naloxone 0.4 Mg/Ml Vial) 0.2 mg IV Q2MIN PRN PRN Reason: Opiate Reversal Ondansetron HCl (Ondansetron 4 Mg/2 Ml Inj) 4 mg IV NOW ONE Stop: 04/08/25 05:01 Last Admin: 04/08/25 05:00 Dose: 4 mg Documented By: Ondansetron HCl (Ondansetron 4 Mg/2 Ml Inj) 4 mg IV NOW ONE Stop: 04/08/25 08:22 Last Admin: 04/08/25 08:24 Dose: 4 mg Documented By: DEMETRIS Pantoprazole Sodium (Pantoprazole 40 Mg Vial) 80 mg IV NOW ONE Stop: 04/08/25 05:01 Last Admin: 04/08/25 05:05 Dose: 80 mg Documented By: AB Pantoprazole Sodium (Pantoprazole 40 Mg Vial) 40 mg IV DAILY [facility] Vital Signs Vital signs: Vital Signs - 8 hr 04/08/25 08:27 04/08/25 08:30 04/08/25 09:00 Pulse Rate 95 H 90 Respiratory Rate 16 13 Blood Pressure 110/75 Pulse Oximetry 98 99 04/08/25 09:00 04/08/25 09:30 04/08/25 09:30 Pulse Rate 83 87 Respiratory Rate 19 18 Blood Pressure 111/79 Pulse Oximetry 98 100 <Angelito Kaur MD - Last Filed: 04/08/25 13:46> Orders Ordered: Discontinued Medications Sodium Chloride (Normal Saline 0.9%) 1,000 mls @ 1,000 mls/hr IV BOLUS ONE Stop: 04/08/25 09:03 Last Infusion: 04/08/25 10:30 Dose: Infused Documented By: Admin: 04/08/25 08:17 Dose: 1,000 mls/hr Documented By: ES Sodium Chloride (Normal Saline 0.9%) 1,000 mls @ 100 mls/hr IV CONT [facility] Last Admin: 04/08/25 12:27 Dose: 100 mls/hr Documented By: MM Lactated Ringer's (Lactated Ringers) 1,000 mls @ 42 mls/hr IV CONT [facility] Last Admin: 04/08/25 13:35 Dose: 42 mls/hr Documented By: CB Metoprolol Tartrate (Metoprolol Tartrate 5 Mg/5 Ml Inj) 5 mg IV Q2HR PRN PRN Reason: Tachyarrhythmias Naloxone HCl (Naloxone 0.4 Mg/Ml Vial) 0.2 mg IV Q2MIN PRN PRN Reason: Opiate Reversal Ondansetron HCl (Ondansetron 4 Mg/2 Ml Inj) 4 mg IV NOW ONE Stop: 04/08/25 05:01 Last Admin: 04/08/25 05:00 Dose: 4 mg Documented By: Ondansetron HCl (Ondansetron 4 Mg/2 Ml Inj) 4 mg IV NOW ONE Stop: 04/08/25 08:22 Last Admin: 04/08/25 08:24 Dose: 4 mg Documented By: DEMETRIS Pantoprazole Sodium (Pantoprazole 40 Mg Vial) 80 mg IV NOW ONE Stop: 04/08/25 05:01 Last Admin: 04/08/25 05:05 Dose: 80 mg Documented By: Pantoprazole Sodium (Pantoprazole 40 Mg Vial) 40 mg IV DAILY [facility] Vital Signs Vital signs: Vital Signs - 8 hr 04/08/25 08:27 04/08/25 08:30 04/08/25 09:00 Pulse Rate 95 H 90 Respiratory Rate 16 13 Blood Pressure 110/75 Pulse Oximetry 98 99 04/08/25 09:00 04/08/25 09:30 04/08/25 09:30 Pulse Rate 83 87 Respiratory Rate 19 18 Blood Pressure 111/79 Pulse Oximetry 98 100 MDM - GI Bleed <Mandy Cary, DO - Last Filed: 04/11/25 08:52> Lab Data 04/08/25 13:42 04/08/25 05:00 Labs: Lab Results 04/08/25 04/08/25 Range/Units 05:00 07:05 WBC 8.8 (4.5-11.0) X10^3/uL RBC 5.50 (4.5-5.9) X10^6/uL Hgb 14.4 13.9 (13.5-17.5) g/dL Hct 42.8 40.4 L (41-53) % MCV 77.7 L (80-100) fL MCH 26.2 (26-34) PG MCHC 33.8 (30-36) % RDW 14.5 (11.6-14.8) % Plt Count 235 (150-400) X10^3/uL Neut % (Auto) 58.9 (50-75) % Lymph % (Auto) 31.3 (25-40) % Andrew % (Auto) 6.0 (3-14) % Eos % (Auto) 2.9 (2-4) % Baso % (Auto) 0.9 (0-2) % Neut # (Auto) 5200 (6497-1668) /uL Lymph # (Auto) 2800 (9496-2968) /uL Andrew # (Auto) 500 (0-900) /uL Eos # (Auto) 300 (0-450) /uL Baso # (Auto) 100 (0-100) /uL PT 13.1 H (9.4-12.5) SECONDS INR 1.2 (0.9-1.3) Sodium 138 (137-145) mmol/L Potassium 4.4 (3.4-5.1) mmol/L Chloride 102 (98-107) mmol/L Carbon Dioxide 25 (22-32) mmol/L BUN 26 H (9-20) mg/dL Creatinine 0.90 (0.66-1.25) mg/dL Estimated GFR > 60 (>60) mL/min BUN/Creatinine Ratio 28.9 H (6-22) Glucose 93 (70-99) mg/dL Lactate 1.5 (0.7-2.1) mmol/L Calcium 9.1 (8.4-10.2) mg/dL Total Bilirubin 0.8 (0.2-1.3) mg/dL AST 63 H (17-59) IU/L ALT 134 H (<50) IU/L Alkaline Phosphatase 69 (38-126) U/L Troponin I 0.092 H 0.093 H (0.01-0.034) ng/mL Total Protein 7.9 (6.3-8.2) g/dL Albumin 4.7 (3.5-5.0) g/dL Globulin 3.2 (1.7-4.1) g/dL Albumin/Globulin Ratio 1.5 (1.0-2.8) Lipase 74 (23-300) U/L Blood Type B Positive Antibody Screen Negative Urine Dip Bedside Urine Glucose Negative Bedside Urine Bilirubin - Negative Bedside Urine Ketone +/- 5 Urine Specific [place] 1.005 Bedside Urine Occult Blood - Negative Bedside Urine pH 6.0 Bedside Urine Protein - Negative Bedside Urine Urobilinogen - Negative Bedside Urine Nitrite - Negative Bedside Urine Leukocytes - Negative Esterase Imaging Data CT scan - abdomen/pelvis: Radiologist's Impression: CT angio preliminary report no CT findings for gastrointestinal hemorrhage ECG Data Attestation: I personally reviewed and interpreted this ECG as follows: Prior ECG tracings: available for review Interpretation: Normal sinus rhythm rate 94 [place] interval 168 QRS 78 QRS DC for the in no significant changes from prior MDM Narrative Medical decision making narrative: MDM CC: Bloody stool and vomiting Complicating co-morbidities: Unstable angina seizures Data collected from: Patient Medical records reviewed: ED visits Differential considered: [ ] Exam documented above, pertinent findings include: Alert pleasant 35-year-old male abdomen soft nontender Lab Test results independently reviewed as above. Pertinent findings: CBC no leukocytosis no anemia hemoglobin 14/42.8 5 days ago with 16.1 and 47 Electrolytes within normal limits BUN creatinine ratio is elevated BUN 26 creatinine 0.95 days ago was 9 and 0.89 Lactate 1.5 Bilirubin liver enzymes appears stable and somewhat improved Bilirubin 0.8 AST 63, ALT 134 Troponin elevated 0.092 which is at about baseline previously though it was 0.082 Independently reviewed EKG as above Sinus rhythm no ischemia Imaging studies independently reviewed: CT angio pulmonary report to bleeding Consultations: [ ] Treatments: Protonix and Zofran Re-evaluations: [ ] Discussion: Patient 35-year-old male history of acute coronary syndrome presenting today with GI bleed. He was diagnosed with colitis and placed on Augmentin 5 dizzy days ago but now having bleeding. CT does not show any active bleeding. Hemoglobin is down about 2 point any with increased BUN creatinine ratio. Not on anticoagulation. Waiting for repeat blood work. Patient is signed out to <Angelito Kaur MD - Last Filed: 04/08/25 13:46> Lab Data Labs: Lab Results 04/08/25 04/08/25 Range/Units 05:00 07:05 WBC 8.8 (4.5-11.0) X10^3/uL RBC 5.50 (4.5-5.9) X10^6/uL Hgb 14.4 13.9 (13.5-17.5) g/dL Hct 42.8 40.4 L (41-53) % MCV 77.7 L (80-100) fL MCH 26.2 (26-34) PG MCHC 33.8 (30-36) % RDW 14.5 (11.6-14.8) % Plt Count 235 (150-400) X10^3/uL Neut % (Auto) 58.9 (50-75) % Lymph % (Auto) 31.3 (25-40) % Andrew % (Auto) 6.0 (3-14) % Eos % (Auto) 2.9 (2-4) % Baso % (Auto) 0.9 (0-2) % Neut # (Auto) 5200 (2782-1468) /uL Lymph # (Auto) 2800 (5498-6341) /uL Andrew # (Auto) 500 (0-900) /uL Eos # (Auto) 300 (0-450) /uL Baso # (Auto) 100 (0-100) /uL PT 13.1 H (9.4-12.5) SECONDS INR 1.2 (0.9-1.3) Sodium 138 (137-145) mmol/L Potassium 4.4 (3.4-5.1) mmol/L Chloride 102 (98-107) mmol/L Carbon Dioxide 25 (22-32) mmol/L BUN 26 H (9-20) mg/dL Creatinine 0.90 (0.66-1.25) mg/dL Estimated GFR > 60 (>60) mL/min BUN/Creatinine Ratio 28.9 H (6-22) Glucose 93 (70-99) mg/dL Lactate 1.5 (0.7-2.1) mmol/L Calcium 9.1 (8.4-10.2) mg/dL Total Bilirubin 0.8 (0.2-1.3) mg/dL AST 63 H (17-59) IU/L ALT 134 H (<50) IU/L Alkaline Phosphatase 69 (38-126) U/L Troponin I 0.092 H 0.093 H (0.01-0.034) ng/mL Total Protein 7.9 (6.3-8.2) g/dL Albumin 4.7 (3.5-5.0) g/dL Globulin 3.2 (1.7-4.1) g/dL Albumin/Globulin Ratio 1.5 (1.0-2.8) Lipase 74 (23-300) U/L Blood Type B Positive Antibody Screen Negative Urine Dip Bedside Urine Glucose Negative Bedside Urine Bilirubin - Negative Bedside Urine Ketone +/- 5 Urine Specific [place] 1.005 Bedside Urine Occult Blood - Negative Bedside Urine pH 6.0 Bedside Urine Protein - Negative Bedside Urine Urobilinogen - Negative Bedside Urine Nitrite - Negative Bedside Urine Leukocytes - Negative Esterase Imaging Data CT scan - abdomen/pelvis: Radiologist's Impression: CT angio preliminary report no CT findings for gastrointestinal hemorrhage [address] [address] [address] Scan Report Signed Patient: Lewis Lucia MR#: [id number] : 1990 Acct:[id number] Age/Sex: 35 / M Date of Service: 04/08/25 Loc: ED Accession Number: [id number] Procedure: CT angio Abd/Pel GI Bleed Ordering Provider: Mandy Cary D.O. PROCEDURE: CT ANGIO ABD/PEL GI BLEED INDICATIONS: Vomiting with blood in it, stomach pain and chest pain. TECHNIQUE: After the administration of intravenous contrast, 2.5 mm sections acquired from the diaphragm to the iliac crests. 10 mm maximum intensity projection (MIP) coronal and sagittal reformats were then performed. For radiation dose reduction, the following was used: automated exposure control. COMPARISON: None. FINDINGS: Image quality: Diagnostic. Abdominal aorta: No aortic aneurysm or evidence of acute aortic syndrome. Mesenteric arteries: Patent without hemodynamically significant stenosis. Renal arteries: Patent without hemodynamically significant stenosis. Lower chest: Unremarkable. ABDOMEN: Liver: Severe hepatic steatosis. Gallbladder: No radiopaque gallstones or wall thickening. Biliary ducts: No biliary dilation. Pancreas: No ductal dilation. Spleen: Size is within normal limits. Adrenal Glands: No adrenal nodules. Kidneys and Ureters: No hydronephrosis. No solid mass. No complex renal cystic lesion which requires follow up. Stomach and Bowel: Normal colonic caliber, without significant wall thickening. Peritoneum: No abnormal intraperitoneal fluid. No free air. Ventral Wall: No hernia. Abdominal Nodes: No retroperitoneal or mesenteric adenopathy by size criteria. Vessels: Aorta, as above. Normal IVC. PELVIS: Pelvic Organs: Unremarkable. Bladder: Unremarkable. Pelvic Nodes: No enlarged lymph nodes. Miscellaneous: No inguinal hernias are seen. Bones: No aggressive osseous abnormality. IMPRESSION: No acute abnormality. Severe hepatic steatosis. Dictated by: Tyler Lopes M.D. on 04/08/2025 at 9:15 Approved by: Tyler Lopes M.D. on 04/08/2025 at 9:19 [facility] Narrative Medical decision making narrative: MDM CC: Bloody stool and vomiting Complicating co-morbidities: Unstable angina seizures Data collected from: Patient Medical records reviewed: ED visits Differential considered: Upper child's ability lower GI bleed gastritis acid reflux Exam documented above, pertinent findings include: Alert pleasant 35-year-old male abdomen soft nontender Lab Test results independently reviewed as above. Pertinent findings: CBC no leukocytosis no anemia hemoglobin 14/42.8 5 days ago with 16.1 and 47 Electrolytes within normal limits BUN creatinine ratio is elevated BUN 26 creatinine 0.95 days ago was 9 and 0.89 Lactate 1.5 Bilirubin liver enzymes appears stable and somewhat improved Bilirubin 0.8 AST 63, ALT 134 Troponin elevated 0.092 which is at about baseline previously though it was 0.082 Independently reviewed EKG as above Sinus rhythm no ischemia Repeat H&H 13.9 down from 14.4 2 hours ago Imaging studies independently reviewed: CT angio pulmonary report to bleeding Consultations: 8:18 a.m.. I spoke with Dr. Shahid, general surgery. You will be able to do endoscopy for patient later today. Admit to hospitalist. Keep NPO. Patient has been NPO since 10:00 p.m. last night. No transfusion indicated this time. Patient did not have small decrease in H&H. Troponin is at baseline he always has elevated troponins. He has no chest pain. 9:56 a.m.. Spoke with hospitalist, Dr. Pace, will admit patient. Treatments: Protonix and Zofran Re-evaluations: 8:20 a.m.. Updated patient results and treatment plan. He is pleased to be admitted here. Discussion: Patient 35-year-old male history of acute coronary syndrome presenting today with GI bleed. He was diagnosed with colitis and placed on Augmentin 5 dizzy days ago but now having bleeding. CT does not show any active bleeding. Hemoglobin is down about 2 point any with increased BUN creatinine ratio. Not on anticoagulation. Waiting for repeat blood work. Patient is signed out to April 08 2025 at 7:00 a.m.. Vincent: ?sign out from Dr Cary patient has chronic elevated troponins. This is not new. Patient here for hematemesis abdominal pain. No chest pain. Repeat H&H and troponin pending. Patient given Zofran PPI. No IV fluids. 8:04 a.m.. Spoke with patient regarding his laboratory studies. Who will need to be transferred as his hemoglobin still is decreasing. He has had fatigue with this rectal bleeding and hematemesis. No prior history of ulcers or acid reflux. Patient states he knows his troponin is always elevated. In 2022 he had heart catheterization in [place] and no blockages or stents found. When he was transferred in September 2024 from here to [facility], he states no further workup was done no heart catheterization. He denies any chest pain. Discharge Plan Departure Patient Disposition: Admitted as Observation Clinical Impression: Acute upper gastrointestinal bleeding Admit Date/Time: 04/08/25 09:57 Admit Provider: Sirisha Pace
--- NOTE | 2025-04-08 06:07 | EKG_ITS ---
[id number] [place] [id number] Test Date: 2025-04-08 Pat Name: Lewis Lucia Department: [facility] Room: Gender: Male Coordinator Cardiopulmonary Services: JIMBO : 1990 Requested By: Order Number: [id number] Reading MD: Florentino Vicente MD Measurements Intervals [place] Rate: 94 P: 50 OR: 160 QRS: 71 QRSD: 78 T: 0 QT: 328 QTc: 410 Interpretive Statements Normal sinus rhythm Cannot rule out Anterior infarct , age undetermined Electronically Signed On 04-08-2025 8:03:46 PDT by Florentino Vicente MD
--- NOTE | 2025-04-08 06:09 | DI.CT.S_ITS ---
PROCEDURE: CT ANGIO ABD/PEL GI BLEED INDICATIONS: Vomiting with blood in it, stomach pain and chest pain. TECHNIQUE: After the administration of intravenous contrast, 2.5 mm sections acquired from the diaphragm to the iliac crests. 10 mm maximum intensity projection (MIP) coronal and sagittal reformats were then performed. For radiation dose reduction, the following was used: automated exposure control. COMPARISON: None. FINDINGS: Image quality: Diagnostic. Abdominal aorta: No aortic aneurysm or evidence of acute aortic syndrome. Mesenteric arteries: Patent without hemodynamically significant stenosis. Renal arteries: Patent without hemodynamically significant stenosis. Lower chest: Unremarkable. ABDOMEN: Liver: Severe hepatic steatosis. Gallbladder: No radiopaque gallstones or wall thickening. Biliary ducts: No biliary dilation. Pancreas: No ductal dilation. Spleen: Size is within normal limits. Adrenal Glands: No adrenal nodules. Kidneys and Ureters: No hydronephrosis. No solid mass. No complex renal cystic lesion which requires follow up. Stomach and Bowel: Normal colonic caliber, without significant wall thickening. Peritoneum: No abnormal intraperitoneal fluid. No free air. Ventral Wall: No hernia. Abdominal Nodes: No retroperitoneal or mesenteric adenopathy by size criteria. Vessels: Aorta, as above. Normal IVC. PELVIS: Pelvic Organs: Unremarkable. Bladder: Unremarkable. Pelvic Nodes: No enlarged lymph nodes. Miscellaneous: No inguinal hernias are seen. Bones: No aggressive osseous abnormality. IMPRESSION: No acute abnormality. Severe hepatic steatosis. Dictated by: Tyler Lopes M.D. on 04/08/2025 at 9:15 Approved by: Tyler Lopes M.D. on 04/08/2025 at 9:19
[2025-04-08 06:14] LABS: Add Manual Diff / Slide Review NO; Hematocrit 42.8 % (41-53); Hemoglobin 14.4 g/dL (13.5-17.5); Lymphocytes Absolute Auto 2800 /uL (1100-4500); Mean Corpuscular HGB Conc 33.8 % (30-36); Mean Corpuscular Hemoglobin 26.2 PG (26-34); Mean Corpuscular Volume 77.7 fL (80-100); Platelet Count 235 X10^3/uL (150-400)
[2025-04-08 06:15] LABS: Alanine Aminotransferase 134 IU/L (<50); Albumin 4.7 g/dL (3.5-5.0); Albumin Globulin Ratio 1.5 (1.0-2.8); Alkaline Phosphatase 69 U/L (38-126); Blood Urea Nitrogen 26 mg/dL (9-20); Calcium 9.1 mg/dL (8.4-10.2); Carbon Dioxide 25 mmol/L (22-32); Chloride 102 mmol/L (98-107); Estimated Glomerular Filt Rate > 60 mL/min (>60); Globulin 3.2 g/dL (1.7-4.1); Glucose 93 mg/dL (70-99); HEMOLYSIS 24 (0-50); Lactate (Lactic Acid) 1.5 mmol/L (0.7-2.1); Lipase 74 U/L (23-300); Potassium 4.4 mmol/L (3.4-5.1); Sodium 138 mmol/L (137-145); Total Protein 7.9 g/dL (6.3-8.2); Troponin I 0.092 ng/mL (0.01-0.034)
[2025-04-08 06:16] LABS: INR 1.2 (0.9-1.3); Prothrombin Time 13.1 SECONDS (9.4-12.5)
[2025-04-08 07:13] LABS: Hematocrit 40.4 % (41-53); Hemoglobin 13.9 g/dL (13.5-17.5)
[2025-04-08 07:41] LABS: Troponin I 0.093 ng/mL (0.01-0.034)
[2025-04-08] MEDS: SODIUM CHLORIDE 0.9% 1,000 ML 1000 ML IV (08:17)
--- NOTE | 2025-04-08 11:52 | PM.HP.1 ---
History of Present Illness History of Present Illness Date Patient Seen: 04/08/25 Time Patient Seen: 11:52 Chief complaint: Gastric Pain, Blood in stool, nausea 2xdays Narrative: This is a 35-year-old male with a history of hip osteoarthritis and benign chronically elevated troponin who presents with acute upper GI bleeding. He says he has been taking an unknown pain medicine for his hip for the last 4 months, which is suspected to be an NSAID. He has had occasional red coloration to his stools for the last month but then developed black tarry stools 2 days ago. At 3:00 a.m. this morning he was vomiting up blood and came to the ED. His hemoglobin dropped from 14.4 to 13.9 over 2 hours in the ED, from a baseline of 16 previously. He has had epigastric pain, only while at rest, for the last week. Surgery has consulted on him and will be doing endoscopy this afternoon. He has a history of chronically elevated troponin, indicating that he has been hospitalized several times, in fact undergoing a cardiac catheterization 2 years ago in [place] that he was told was normal. His baseline troponin is consistently around 0.09. He drinks alcohol (wine) only rarely. He has no history of peptic ulcer disease or previous GI bleeding. Assessment and plan: Acute GI bleed, present on admission. Active. -1 month of progressive symptoms including epigastric pain, black tarry stools and hematemesis -has been on an unknown pain medicine for approximately 4 months, likely NSAID -hemoglobin dropped from 14.4 down to 13.9 during 2 hours in the ED. -surgery will consult and plans endoscopy today. -IV Protonix, IV fluid, NPO, avoid NSAIDs -hematocrit Q 8 hours Chronic elevation of troponin, present on admission. Chronic/stable. -troponin of 0.093 consistent with his known baseline of 0.090. -previous evaluations including cardiac catheterization reportedly normal. SCD for DVT prevention [facility] Medical History (Updated 04/08/25 @ 14:22 by Sirisha Pace MD) Osteoarthritis Elevated troponin Surgical History (Updated 04/08/25 @ 14:22 by Sirisha Pace MD) No significant past surgical history Family History (Updated 04/08/25 @ 14:23 by Sirisha Pace MD) Mother Osteoarthritis Social History household members: spouse, family and children Smoking Status: Never smoker Meds Home Medications and Allergies Home Medications ?Medication ?Instructions ?Recorded ?Confirmed ?Type amoxicillin 875 mg-potassium 1 tab PO BID #20 tabs 04/04/25 04/08/25 Rx clavulanate 125 mg tablet Allergies Allergy/AdvReac Type Severity Reaction Status Date / Time No Known Drug Allergies Allergy Verified 04/08/25 05:56 Review of Systems Review of Systems Narrative: Positive for chronic Hip Pain, Hematemesis, Black Stool and Abdominal Pain. Negative for fevers, chills, sweats, chest pain, dysuria, rashes, headaches, seizures, sore throat, new allergies. Exam Vital Signs (past 8 hours): - 04/08/25 04:50 04/08/25 08:27 04/08/25 08:30 Temperature 98.8 F Pulse Rate 107 H 95 H 90 Respiratory Rate 18 16 13 Blood Pressure 125/80 Pulse Oximetry 99 98 99 Oxygen Delivery Method Room Air 04/08/25 09:00 04/08/25 09:00 04/08/25 09:30 Temperature Pulse Rate 83 Respiratory Rate 19 Blood Pressure 110/75 111/79 Pulse Oximetry 98 Oxygen Delivery Method 04/08/25 09:30 04/08/25 10:00 04/08/25 10:00 Temperature Pulse Rate 87 94 H Respiratory Rate 18 17 Blood Pressure 103/59 L Pulse Oximetry 100 99 Oxygen Delivery Method 04/08/25 10:30 04/08/25 10:30 04/08/25 11:00 Temperature Pulse Rate 90 Respiratory Rate 17 Blood Pressure 104/69 104/68 Pulse Oximetry 99 Oxygen Delivery Method 04/08/25 11:00 04/08/25 11:30 04/08/25 11:30 Temperature Pulse Rate 90 92 H Respiratory Rate 24 17 Blood Pressure 112/78 Pulse Oximetry 100 100 Oxygen Delivery Method Room Air Oxygen Delivery Method Room Air Narrative Exam Narrative: Alert and oriented x3. No apparent distress. Pupils are equally round and reactive to light and accommodation. Extraocular muscles are intact. Sclerae are mildly yellowed. Tongue is ridged. Throat is otherwise normal. No lymph nodes are felt head, neck, supraclavicular area. There is no thyromegaly. JVD is less than 6 cm. No carotid bruits are heard. Heart is regular rate and rhythm without murmur. Lungs are clear to auscultation bilaterally. Abdomen is soft, bowel sounds positive, nontender, no organomegaly. Extremities have no ankle edema. Skin has no rash or jaundice. Motor function is 5/5 throughout. There is no tremor. Reflexes normal. Cranial nerves 2-12 test intact. Objective Labs 04/08/25 13:42 04/08/25 05:00 Labs: Laboratory Results - last 24 hr 04/08/25 04/08/25 05:00 07:05 WBC 8.8 RBC 5.50 Hgb 14.4 13.9 Hct 42.8 40.4 L MCV 77.7 L MCH 26.2 MCHC 33.8 RDW 14.5 Plt Count 235 Neut % (Auto) 58.9 Lymph % (Auto) 31.3 [place] % (Auto) 6.0 Eos % (Auto) 2.9 Baso % (Auto) 0.9 Neut # (Auto) 5200 Lymph # (Auto) 2800 [place] # (Auto) 500 Eos # (Auto) 300 Baso # (Auto) 100 PT 13.1 H INR 1.2 Sodium 138 Potassium 4.4 Chloride 102 Carbon Dioxide 25 BUN 26 H Creatinine 0.90 Estimated GFR > 60 BUN/Creatinine Ratio 28.9 H Glucose 93 Lactate 1.5 Calcium 9.1 Total Bilirubin 0.8 AST 63 H ALT 134 H Alkaline Phosphatase 69 Troponin I 0.092 H 0.093 H Total Protein 7.9 Albumin 4.7 Globulin 3.2 Albumin/Globulin Ratio 1.5 Lipase 74 Blood Type B Positive Antibody Screen Negative Assessment & Plan Time-Based Coding :: [TOTAL MINUTES] spent with patient and on the chart (including review of chart, obtaining history, exam, reviewing outside data, placing orders, documenting exam and treatment plan, and counseling patient) on [DATE].
[2025-04-08] MEDS: SODIUM CHLORIDE 0.9% 1,000 ML 100 ML IV (12:27)
[2025-04-08] MEDS: LACTATED RINGERS 1,000 ML 42 ML IV (13:35)
[2025-04-08 13:49] LABS: Hematocrit 38.5 % (41-53); Hemoglobin 13.1 g/dL (13.5-17.5)
--- NOTE | 2025-04-08 13:54 | PM.CN.IH.1 ---
History of Present Illness Consult details Date Patient Seen: 04/08/25 Time Patient Seen: 13:54 Chief complaint: Gastric Pain, Blood in stool, nausea 2xdays Narrative: Lewis is a 35 year old man who presented to the emergency room after 2 episodes of hematemesis overnight. He had also been experiencing epigastric abdominal pain for past 24 hours or so. You did have some dark stools, possibly some blood in stool about 2 days ago. He does take some pain medications but it was not recall the exact names of the medications. He has epilepsy and takes a medication for epilepsy that is not Keppra but he does not know the exact name. Meds Home Medications and Allergies Home Medications ?Medication ?Instructions ?Recorded ?Confirmed ?Type amoxicillin 875 mg-potassium 1 tab PO BID #20 tabs 04/04/25 04/08/25 Rx clavulanate 125 mg tablet Allergies Allergy/AdvReac Type Severity Reaction Status Date / Time No Known Drug Allergies Allergy Verified 04/08/25 05:56 Exam Vital Signs (past 8 hours): - 04/08/25 08:27 04/08/25 08:30 04/08/25 09:00 Temperature Pulse Rate 95 H 90 Respiratory Rate 16 13 Blood Pressure 110/75 Pulse Oximetry 98 99 Oxygen Delivery Method 04/08/25 09:00 04/08/25 09:30 04/08/25 09:30 Temperature Pulse Rate 83 87 Respiratory Rate 19 18 Blood Pressure 111/79 Pulse Oximetry 98 100 Oxygen Delivery Method 04/08/25 10:00 04/08/25 10:00 04/08/25 10:30 Temperature Pulse Rate 94 H 90 Respiratory Rate 17 17 Blood Pressure 103/59 L Pulse Oximetry 99 99 Oxygen Delivery Method 04/08/25 10:30 04/08/25 11:00 04/08/25 11:00 Temperature Pulse Rate 90 Respiratory Rate 24 Blood Pressure 104/69 104/68 Pulse Oximetry 100 Oxygen Delivery Method 04/08/25 11:30 04/08/25 11:30 04/08/25 12:10 Temperature 97.4 F L Pulse Rate 92 H 98 H Respiratory Rate 17 18 Blood Pressure 112/78 127/91 H Pulse Oximetry 100 98 Oxygen Delivery Method Room Air 04/08/25 13:29 Temperature 97.1 F L Pulse Rate 93 H Respiratory Rate 16 Blood Pressure 146/93 H Pulse Oximetry 99 Oxygen Delivery Method Room Air Oxygen Delivery Method Room Air Const General: No acute distress Objective Labs 04/08/25 13:42 04/08/25 05:00 Labs: Laboratory Results - last 24 hr 04/08/25 04/08/25 04/08/25 05:00 07:05 13:42 WBC 8.8 RBC 5.50 Hgb 14.4 13.9 13.1 L Hct 42.8 40.4 L 38.5 L MCV 77.7 L MCH 26.2 MCHC 33.8 RDW 14.5 Plt Count 235 Neut % (Auto) 58.9 Lymph % (Auto) 31.3 [place] % (Auto) 6.0 Eos % (Auto) 2.9 Baso % (Auto) 0.9 Neut # (Auto) 5200 Lymph # (Auto) 2800 [place] # (Auto) 500 Eos # (Auto) 300 Baso # (Auto) 100 PT 13.1 H INR 1.2 Sodium 138 Potassium 4.4 Chloride 102 Carbon Dioxide 25 BUN 26 H Creatinine 0.90 Estimated GFR > 60 BUN/Creatinine Ratio 28.9 H Glucose 93 Lactate 1.5 Calcium 9.1 Total Bilirubin 0.8 AST 63 H ALT 134 H Alkaline Phosphatase 69 Troponin I 0.092 H 0.093 H Total Protein 7.9 Albumin 4.7 Globulin 3.2 Albumin/Globulin Ratio 1.5 Lipase 74 Blood Type B Positive Antibody Screen Negative [facility] Medical History (Updated 04/08/25 @ 11:53 by Sirisha Pace MD) Elevated troponin Social History household members: spouse, family and children Tobacco & Substance Use Smoking Status: Never smoker Assessment & Plan Assessment and plan (1) Acute upper gastrointestinal bleeding: Status: Acute Plan EGD for hematemesis. If no source is found we can bring him back in for a colonoscopy in the next few weeks. Time-Based Coding :: [TOTAL MINUTES] spent with patient and on the chart (including review of chart, obtaining history, exam, reviewing outside data, placing orders, documenting exam and treatment plan, and counseling patient) on [DATE]. PROFEE Charge Codes Inpatient or Observation consultation: [id number]
--- NOTE | 2025-04-08 15:01 | PM.OP.EGD ---
Operative Date/Time/Diagnoses Date of procedure: 04/08/25 Time of procedure: 15:01 Pre-op diagnosis: Hematemesis Post-op diagnosis: same Procedure & Clinicians Study performed: Esophagogastroduodenoscopy Same procedure(s) as scheduled: Yes Surgeon: Darius Shahid Anesthesia Type: MAC +/- Procedure Notes Procedure in detail: Surgeon: Darius Shahid MD Anesthesia: Ian Echavarria MD A timeout was performed. A bite blocked was placed. The patient was positioned in the left lateral decubitus position. Anesthesia was administered. The endoscope was inserted through the bite block and passed through the esophagus and stomach and into the duodenum. The duodenal mucosa appeared normal. Biopsies were taken from the duodenal mucosa with cold forceps. The scope was withdrawn into the stomach. There was no obvious antritis but random biopsies were taken from the antrum with cold forceps. The scope was retroflexed and antritis was noted around the fundus. No ulcers or tears were seen. Random biopsies were taken from the fundus with cold forceps. The scope was withdrawn into the esophagus and no further abnormalities were seen. The remainder of the esophagus was normal. The scope was withdrawn. The patient was awakened and brought to recovery. Sedation time: 7 minutes Findings: Gastritis of the fundus Post-procedure Disposition: PACU
--- NOTE | 2025-04-08 18:07 | INF.NOTE ---
Pt arrived approximately 1210 A/O SL intact/patent. IVF infusing as per orders Went to OR at 1310 Returned after EGD... Pt received D/C order. Transportation will be here approximately 1900 Call light w/in reach, pt calls appropriately for needs. Continue plan of care.
--- NOTE | 2025-04-08 18:54 | PC.NURSE ---
Pt arrived to floor 1210 Went to OR for EGD @ 1310 Returned to room, IVF infusing as per orders. Slept for period. Orders for D/C received SL D/C intact. Home instructions given w/ understanding Pt escorted by staff via W/C to waiting vehicle D/C in stable status.
== END 2025-04-08 18:55 | disposition home or self-care (01) ==
LOC: ED 08:27 → AC 09:57
PROVIDERS: Emergency Medicine; Surgery; Admitting Provider Family Medicine; Emergency Provider Emergency Medicine; Referring Provider Emergency Medicine; Visit Provider Family Medicine
PROC: 0DJ08ZZ Inspection of Upper Intestinal Tract, Via Natural or Artificial Opening Endoscopic (ICD-10-PCS; CPT 43239; principal; 2025-04-08 15:00)
DX: K29.70 Gastritis, unspecified, without bleeding (principal); G40.909 Epilepsy, unspecified, not intractable, without status epilepticus; M16.10 Unilateral primary osteoarthritis, unspecified hip; R79.89 Other specified abnormal findings of blood chemistry
CPT/HCPCS: 43239; 36415; 74174; 80053; 81003; 83605; 83690; 84484; 85014; 85018; 85025; 85610; 86850; 86900; 86901; 93005; 93010; 96361; 96374; 96375; 96376; 99222; 99284; G0378; J2250; J2405; J2470; J2704; Q9967